=== PATIENT | male | born 1970 | race African-American/Black ===

== ENCOUNTER 2016-11-19 13:13 | Emergency (ER) | payer SELFPAY ==
[~2016-11-19] VITALS: Ht 175.3 cm; Wt 97.7 kg
[2016-11-19 13:17] VITALS: BP 221/133; TEMP 98.4
[2016-11-19 14:47] VITALS: PULSE 58
== END 2016-11-19 14:47 | disposition home or self-care (01) ==
LOC: COL.ER 13:13
DX: M25.571 Pain in right ankle and joints of right foot (principal); I10 Essential (primary) hypertension; W22.8XXA Striking against or struck by other objects, initial encounter; Z53.29 Procedure and treatment not carried out because of patient's decision for other reasons

== ENCOUNTER 2016-12-08 10:19 | Outpatient (RCR) | payer OTHER | END 2017-01-16 13:11 | LOC: WSOH 10:19 | DX: S90.31XD Contusion of right foot, subsequent encounter (principal); M19.071 Primary osteoarthritis, right ankle and foot; W20.8XXD Other cause of strike by thrown, projected or falling object, subsequent encounter; Y99.0 Civilian activity done for income or pay ==

== ENCOUNTER → 2018-06-29 | Outpatient (CLI) | payer SELFPAY ==
[~2018-06-29] VITALS: Ht 175.3 cm; Wt 86.9 kg
[~2018-06-29] MED LIST: ALDACTONE 25MG25 M1 PO; APRESOLINE 10MG10 MG PO; COREG12.5 MG PO; NITRO-DUR0.4 MG/PAT TD; NORVASC2.5 MG PO; PRINIVIL10 MG PO
[2018-06-29 08:36] VITALS: BP 190/124; PULSE 73
[2018-06-29 09:56] VITALS: BP 183/105; PULSE 102
[2018-06-29 09:57] VITALS: BP 173/92; PULSE 92
[2018-06-29 09:58] VITALS: BP 162/90; PULSE 86
== END ==
LOC: COL.CARD 08:04
DX: R07.9 Chest pain, unspecified (principal)
CPT/HCPCS: A9502; J2785

== ENCOUNTER 2018-09-13 09:46 | Inpatient (IN) | payer MEDICAID ==
[~2018-09-13] VITALS: Ht 175.3 cm; Wt 85.5 kg
[2018-09-13] VITALS (269 sets, daily range): BP systolic 135–187; BP diastolic 76–112; PULSE 67–112; TEMP 97.8–98; O2SAT 95–100
[2018-09-13 10:42] LABS: BASO % 0.2 % (0.0-2.0); EOS % 0.1 % (0-4.0); GRAN # 13.5 (1.4-6.5); GRAN % 77.1 % (42.2-75.2); HEMATOCRIT 42.8 % (42.0-52.0); HEMOGLOBIN 14.3 g/dl (13.5-18.0); LYMPH % 17.2 % (20.0-51.0); MEAN CELL VOLUME 77 fl (80.0-100.0); MEAN CORPUSCULAR HEMOGLOBIN 26 pg (27.0-31.0); MEAN CORPUSCULAR HGB CONC 33 g/dl (33.0-37.0); MEAN PLATELET VOLUME 9.7 fl (7.4-10.4); MONO # 0.9 (0.1-0.6); PLATELET COUNT 137 K/mm3 (130-400); RED BLOOD COUNT 5.56 M/mm3 (4.20-5.60); REDCELL DISTRIBUTION WIDTH-CV 14.3 % (11.5-14.5)
[2018-09-13 11:01] LABS: ALBUMIN 4.2 gm/dL (3.5-5.0); BILIRUBIN,TOTAL 0.9 mg/dL (0.0-1.0); C-REACTIVE PROTEIN 1.1 mg/dL (0.0-0.9); CALCIUM 9.4 mg/dL (8.4-10.2); TOTAL PROTEIN 8.6 gm/dL (6.4-8.2)
[2018-09-13 11:12] LABS: CREATININE, serum 5.45 mg/dL (0.66-1.25); POTASSIUM 2.8 mmol/L (3.4-5.0)
[2018-09-13 12:12] LABS: COLLECTION METHOD CLEAN CATCH
[2018-09-13 12:24] LABS: MUCOUS Present /lpf; PH 7 (5-8); SQUAMOUS EPITHELIAL 0-2 /hpf; URINE APPEARANCE Clear; URINE BACTERIA None Seen /hpf; URINE BILIRUBIN Negative (NEGATIVE); URINE BLOOD 2+ (NEGATIVE); URINE COLOR Yellow; URINE GLUCOSE 1+ (NEGATIVE); URINE KETONE Negative (NEGATIVE); URINE LEUKOCYTE ESTERASE Negative (NEGATIVE); URINE NITRATE Negative (NEGATIVE); URINE PROTEIN(semi-quant) 3+ (NEGATIVE); URINE RBC >50 /hpf; URINE UROBILINOGEN Negative (NEGATIVE)
[2018-09-13 12:49] LABS: MAGNESIUM 2.2 mg/dL (1.6-2.3); PHOSPHOROUS 4.7 mg/dL (2.5-4.5)
[2018-09-13 13:11] LABS: TROPONIN-I 0.1 ng/mL (0.000-0.034)
[2018-09-13] MEDS ORDERED: PRINIVIL20 MG PO (15:31)
--- NOTE | 2018-09-13 15:35 | NUR ---
Pt arrived to ICU bed 7 from ER via cart. Pt on Cardene gtt at 10mg/hr. Pt c/o of RUQ pain 11/21. States improved after morphine given in ER. Pt has unsteady gait. Needs x1 assist to ICU bed. HR ST 100s. SBP 180s. Call light in reach.
--- NOTE | 2018-09-13 16:00 | NUR ---
Pt remains on Cardene gtt. Pt resting in bed, easily arousable. Percocet given for headache and RUQ abd pain. Vital signs stable. Call light in reach.
--- NOTE | 2018-09-13 19:00 | NUR ---
Report given to YUE Marshall.
--- NOTE | 2018-09-13 20:00 | NUR ---
PT DROWSY BUT EASILY AWAKENED. PT A&O X3. PT DENIES PAIN AT THIS TIME.
[2018-09-14] VITALS (414 sets, daily range): BP systolic 113–158; BP diastolic 63–94; PULSE 71–93; TEMP 97.4–98.9; O2SAT 97–100
[2018-09-14 06:35] LABS: BASO % 0.2 % (0.0-2.0); GRAN # 15.2 (1.4-6.5); GRAN % 79.3 % (42.2-75.2); HEMATOCRIT 37.4 % (42.0-52.0); LYMPH # 2.4 (1.2-3.4); LYMPH % 12.8 % (20.0-51.0); MEAN CELL VOLUME 79 fl (80.0-100.0); MEAN CORPUSCULAR HEMOGLOBIN 26 pg (27.0-31.0); MEAN CORPUSCULAR HGB CONC 33 g/dl (33.0-37.0); MEAN PLATELET VOLUME 10.2 fl (7.4-10.4); MONO # 1.4 (0.1-0.6); MONO % 7.1 % (1.7-9.3); PLATELET COUNT 159 K/mm3 (130-400); RED BLOOD COUNT 4.75 M/mm3 (4.20-5.60); REDCELL DISTRIBUTION WIDTH-CV 14.6 % (11.5-14.5)
[2018-09-14 06:40] LABS: HEMOGLOBIN 12.3 g/dl (13.5-18.0)
--- NOTE | 2018-09-14 07:00 | NUR ---
Report received from YUE Rodríguez. pT in bed resting, denies pain, falls asleep easily but answers questions during bedside report. will continue to monitor.
[2018-09-14 07:04] LABS: ALBUMIN 3.4 gm/dL (3.5-5.0); CALCIUM 8.8 mg/dL (8.4-10.2); PHOSPHOROUS 5.9 mg/dL (2.5-4.5)
[2018-09-14 07:26] LABS: CREATININE, serum 5.75 mg/dL (0.66-1.25)
--- NOTE | 2018-09-14 08:00 | NUR ---
Drip turned off at this time as BPs are low/stable. Will continue to monitor.
--- NOTE | 2018-09-14 09:30 | NUR ---
Pt sitting up in bed talking to me at 0900, requesting PRN pain pill for pain in RUQ from Dr. Jay palpating, pills given and pt swallowing pills when he became lethargic and unresponsive. Started falling asleep often, called charge nurse and we got him back into supine position. Dr. Sanders called and notified, orders received and implemented, see EMAR. has arrived, updated on situation. VS remain stable, will continue to monitor. IVF bolus to R hand.
[2018-09-14 12:47] LABS: INR 1.1 (0.8-3.0); PROTHROMBIN TIME 12.3 SECONDS (9.7-12.8)
--- NOTE | 2018-09-14 17:15 | NUR ---
Pt has slept off and on all afternoon. at bedside for most of day. BPs remained in 120's to 140's systolically for most of day, held BP as BP below 150 systolically. OR nurse took pt in bed to OR, followed to OR waiting room. Report called to Lorrie, surgical nurse who will be resuming care of pt post operatively. INT to LH and RH. All belongings sent with , surgical to resume care.
--- NOTE | 2018-09-14 17:20 | NUR ---
Received report from YUE Goddard at [facility]. It was reported that patient had just went in for surgery. Awaiting report from ICU following procedure.
--- NOTE | 2018-09-14 19:50 | NUR ---
Received patient at 1950 from procedure. Post-op vitals initiated. Patient is drowsy, arousable to voice and touch. When patient awakens he is confused on what is going on, re-orientated to situation. Abdominal lap sites x 3 with bandaids the lower bandaid has some dried blood noted. Bowel sounds present. Denies any nausea. Post-op IVF infusing via gravity. Family at bedside. Bed is in a low position with bed alarm on and call light in reach.
--- NOTE | 2018-09-14 21:15 | NUR ---
Bed alarm sounding, patient attempting to get out of bed. Patient is more awake, however, still remains confused on being in the hospital and having surgery today. Re-orientated to situation. Patient was able to void 150 ml of yellow clear urine. Patient repositioned in bed independently. Bed remains in a low position with bed alarm on and call light in reach. Family has gone home for the evening.
--- NOTE | 2018-09-14 23:39 | NUR ---
Patient is more awake and alert at this time sitting up in bed watching television. Post-op vitals have been stable. Blood pressure has been in the high 140's-to low 150's. Patient denies any pain. Abdominal lap sites with bandaids with no increase in drainage to the lower site. Patient is tolerating diet with no c/o nausea. IV to INT at this time.
[2018-09-15 00:27] VITALS: BP 151/87; PULSE 89; TEMP 98.1
[2018-09-15 04:20] VITALS: BP 126/73; BP 146/73; PULSE 86; TEMP 98
--- NOTE | 2018-09-15 07:14 | NUR ---
Patient has rested intermittently through the night, more alert and orientated this morning. Currently sitting up in bed watching television. Abdominal lap sites x 3 with bandaids remain CDI after replacing lower bandaid. Denies any concerns or needs, call light within reach.
--- NOTE | 2018-09-15 07:46 | NUR ---
REPORT FROM MARTHA TURNER. PT NPO FOR ERCP LATER THIS PM. PT NOTIFIED OF NEW ORDERS.
[2018-09-15 08:28] VITALS: BP 144/84; PULSE 86; TEMP 97.8
--- NOTE | 2018-09-15 08:46 | NUR ---
BP MEDS HELD PER ORDERS, <150.
--- NOTE | 2018-09-15 10:17 | NUR ---
PT LAYING IN BED WATCHING TV. PT HAS DIFFICULTY SEEING BUTTONS ON REMOTE. ASSISTED WITH TV ADJUSTMENT.
[2018-09-15 11:33] VITALS: BP 157/90; PULSE 94; TEMP 97.6
--- NOTE | 2018-09-15 12:07 | NUR ---
SPOKE WITH DR. GUILLAUME RADIOLOGY RE DIALYSIS CATHETER PLACEMENT. NO NEW ORDERS AT THIS TIME.
[2018-09-15 14:08] LABS: BASO % 0.1 % (0.0-2.0); GRAN # 16.4 (1.4-6.5); GRAN % 81.3 % (42.2-75.2); LYMPH # 2.2 (1.2-3.4); LYMPH % 10.9 % (20.0-51.0); MEAN CELL VOLUME 79 fl (80.0-100.0); MEAN CORPUSCULAR HGB CONC 32 g/dl (33.0-37.0); MEAN PLATELET VOLUME 10.2 fl (7.4-10.4); MONO # 1.4 (0.1-0.6); MONO % 6.9 % (1.7-9.3); PLATELET COUNT 165 K/mm3 (130-400); RED BLOOD COUNT 3.89 M/mm3 (4.20-5.60); REDCELL DISTRIBUTION WIDTH-CV 15.4 % (11.5-14.5)
--- NOTE | 2018-09-15 14:13 | NUR ---
PATIENT TO ERCP AT THIS TIME WITH
[2018-09-15 14:19] LABS: CALCIUM 8.6 mg/dL (8.4-10.2); PHOSPHOROUS 5.4 mg/dL (2.5-4.5); POTASSIUM 3.1 mmol/L (3.4-5.0)
[2018-09-15 14:24] LABS: CREATININE, serum 7.39 mg/dL (0.66-1.25)
[2018-09-15 14:26] LABS: HEMATOCRIT 30.8 % (42.0-52.0); HEMOGLOBIN 9.9 g/dl (13.5-18.0); MEAN CORPUSCULAR HEMOGLOBIN 25 pg (27.0-31.0)
--- NOTE | 2018-09-15 14:58 | NUR ---
SW attempted to meet with patient to discuss discharge however he was out of room for procedure. Will try again.
--- NOTE | 2018-09-15 19:15 | NUR ---
REPORT TO MARTHA TURNER.
[2018-09-15 19:49] VITALS: BP 140/55; PULSE 89; TEMP 98.6
--- NOTE | 2018-09-15 21:00 | NUR ---
Assessment completed. Patient is A&O x 4, is impulsive at times and gets up without using the call light. VSS. Denies any pain. Abdominal lap sites x 3 with bandaids are CDI. Bowel sounds present. Reports passing gas. Tolerating diet with no c/o nausea. Voiding with no difficulities. IVF infusing via left hand per orders. INT to right hand. Up with standby assist as patient can be unsteady at times with a shuffled gait. Denies any concerns or needs at this time. Bed is in a low position with bed alarm on for impulsivness and call light within reach.
[2018-09-16 00:31] VITALS: BP 155/78; PULSE 76; TEMP 98
[2018-09-16 04:47] VITALS: BP 147/85; PULSE 73; TEMP 98.1
--- NOTE | 2018-09-16 06:09 | NUR ---
Patient has for short periods of time through the night. VSS. Reports minimal discomfort to abdomen, denies needing any pain medication. Abdominal lap sites x 3 with bandaids remain CDI. IVF have finished infusing over the 15 hours per orders. Up with standy assist, gait can be unsteady at times. Bed remains in a low position with bed alarm on for impulsivness and call light in reach.
--- NOTE | 2018-09-16 07:23 | NUR ---
Report from Genesis TURNER.
[2018-09-16 07:36] VITALS: BP 146/81; PULSE 82; TEMP 98.5
[2018-09-16 08:06] LABS: BASO % 0.1 % (0.0-2.0); GRAN # 12.8 (1.4-6.5); GRAN % 73.5 % (42.2-75.2); HEMATOCRIT 29.4 % (42.0-52.0); HEMOGLOBIN 9.4 g/dl (13.5-18.0); LYMPH # 3.3 (1.2-3.4); MEAN CELL VOLUME 80 fl (80.0-100.0); MEAN CORPUSCULAR HEMOGLOBIN 25 pg (27.0-31.0); MEAN CORPUSCULAR HGB CONC 32 g/dl (33.0-37.0); MEAN PLATELET VOLUME 10.7 fl (7.4-10.4); MONO # 1.2 (0.1-0.6); MONO % 6.8 % (1.7-9.3); PLATELET COUNT 200 K/mm3 (130-400); RED BLOOD COUNT 3.69 M/mm3 (4.20-5.60); REDCELL DISTRIBUTION WIDTH-CV 15.5 % (11.5-14.5)
[2018-09-16 08:15] LABS: CALCIUM 8.5 mg/dL (8.4-10.2); PHOSPHOROUS 4.2 mg/dL (2.5-4.5)
[2018-09-16 08:17] LABS: CREATININE, serum 7.74 mg/dL (0.66-1.25)
[2018-09-16 10:10] LABS: IRON,SERUM 34 ug/dL (35-150)
--- NOTE | 2018-09-16 10:19 | NUR ---
continue to hold all BP medications for systolic less than 150. am meds held per Bedros.
[2018-09-16 10:20] LABS: TOTAL IRON BINDING CAPACITY 191 ug/dL (261-462)
[2018-09-16 10:46] LABS: FERRITIN 267 ng/mL (18-464)
--- NOTE | 2018-09-16 11:09 | NUR ---
PT ATE BREAKFAST THIS AM. DR. HORTON IN TO SEE PATIENT THIS AM . SEE COMPUTER FOR ORDERS.
--- NOTE | 2018-09-16 11:27 | NUR ---
SW met with patient to discuss discharge planning. Patient lives in [place] with his Valorie. Patients PCP is Dr Turcios and he obtains his medications from [facility]. Álvaro from [employer] reports that he has met with patient and have applied for what he qualifies for including disability. Patient plans on DC Home however fabiola will continue to follow.
[2018-09-16 12:04] VITALS: BP 138/96; PULSE 68; TEMP 98.6
[2018-09-16 20:40] VITALS: BP 169/78; BP 171/89; PULSE 71; TEMP 97.8
--- NOTE | 2018-09-16 22:07 | NUR ---
Assessment completed. Patient is A&O x 4, sitting up in bed watching television. Blood pressure is above 150, medications given per orders. Denies any pain. Abdominal lap sites x 3 with bandaids are CDI. Bowel sounds present. Reports passing gas. Voiding with no difficulities, urine is hilda clear. INT to left and right hand. Up with standby assist, gait is steadier today than it has been the last couple of nights. Deneis any concerns or needs. Bed is in a low position with call light in reach.
[2018-09-16 23:47] VITALS: BP 191/103; PULSE 80; TEMP 98.2
[2018-09-17] VITALS (14 sets, daily range): BP systolic 131–192; BP diastolic 69–110; PULSE 71–94; TEMP 98.1–98.5
--- NOTE | 2018-09-17 00:01 | NUR ---
Patients blood pressure noted to be elevated at 191/103, prn Hydralazine given per orders of SBP >170. Will recheck blood pressure.
--- NOTE | 2018-09-17 01:35 | NUR ---
Patient's blood pressure is now 169/73 after getting up and going to the restroom. Patient does c/o of some abdominal tenderness, prn Percocet given. Denies any other concerns or needs at this time.
--- NOTE | 2018-09-17 05:35 | NUR ---
Patient has rested intermittently through the night. PRN Hydralazine given once through the shift for elevated blood pressure. Patient did receive 1 tablet of Percocet for c/o abdominal tenderness. Abdominal lap sites x 3 with bandaids remain CDI. Denies any concerns or needs this morning.
[2018-09-17 06:16] LABS: BASO % 0.2 % (0.0-2.0); EOS # 0.1 (0.0-0.7); EOS % 0.5 % (0-4.0); GRAN # 7.8 (1.4-6.5); GRAN % 60.3 % (42.2-75.2); LYMPH # 3.9 (1.2-3.4); LYMPH % 30.4 % (20.0-51.0); MEAN CELL VOLUME 81 fl (80.0-100.0); MEAN CORPUSCULAR HGB CONC 32 g/dl (33.0-37.0); MEAN PLATELET VOLUME 9.5 fl (7.4-10.4); MONO # 1.1 (0.1-0.6); MONO % 8.1 % (1.7-9.3); PLATELET COUNT 213 K/mm3 (130-400); RED BLOOD COUNT 3.56 M/mm3 (4.20-5.60); REDCELL DISTRIBUTION WIDTH-CV 15.6 % (11.5-14.5)
[2018-09-17 06:23] LABS: ALBUMIN 2.8 gm/dL (3.5-5.0); CALCIUM 8.3 mg/dL (8.4-10.2); PHOSPHOROUS 3.7 mg/dL (2.5-4.5); POTASSIUM 3.2 mmol/L (3.4-5.0)
[2018-09-17 06:39] LABS: CREATININE, serum 7.81 mg/dL (0.66-1.25)
[2018-09-17 06:43] LABS: HEMATOCRIT 28.9 % (42.0-52.0); HEMOGLOBIN 9.1 g/dl (13.5-18.0); MEAN CORPUSCULAR HEMOGLOBIN 26 pg (27.0-31.0)
--- NOTE | 2018-09-17 07:53 | NUR ---
Patient sitting up at edge of bed. alert & oriented. Patient Bp elevated this am. All Am BP medications given with water this am. He denies being able to feel his elevated BP. Checked with medical lab specialist they plan of dialysis cath placement later this afternoon. Made patient aware of this. He is really wanting to get out of the hospital. His family is at bedside. He reports pain, but states "he likes pain". Denies wanting medication at this time. Patient skin is very dry. Lap site from [facility] jayne banaids intact. Int x2. Will continue to [facility].
--- NOTE | 2018-09-17 08:20 | NUR ---
Spoke with Plans for dialysis cathertor placement at 0900. COnsent obtained. Patient made aware of plan of care. He is feeling a little nervous. He supportive family chelsy nino.
--- NOTE | 2018-09-17 09:11 | NUR ---
Patient to minilab operator for diaylsis procedure. Will await his return
--- NOTE | 2018-09-17 09:21 | NUR ---
ALL MEDS GIVEN WITH VERBAL ORDER FROM MD. SEE MERGE FOR ADMIN TIMES.
--- NOTE | 2018-09-17 10:32 | NUR ---
Patient had returned from cath la, he is sleepy. Vss on room air. Right neck dresing intact, tunneled cath in place. Will monitor.
--- NOTE | 2018-09-17 12:50 | NUR ---
Patient to ICU room 17 for his first dialysis, Spoke with [facility] nurse who will care for patient. His vitals have remained stable on room air. Patient was up to the bathroom for the first time,stand by assist. He did report feeling short of breath, but vitals remained stable, once patient settled back into bed he settled down & was stable, denied feeling short of breath. His Shavonne given update of plan of care.
--- NOTE | 2018-09-17 15:38 | NUR ---
Patient has completed dialysis. He denies needing pain medication at this time, but report dialysis was hard on his neck. Patient Iv antibioitcs as ordered to Rob. K+ replaced per ordered. Patient Vss. Will monitor.
--- NOTE | 2018-09-17 16:49 | NUR ---
Patient continues to rest in bed. Bp more elevated. Coreg given per orders. IV antibioitcs as ordered. He denies the need for pain medication. He is wanting to nap until dinner. Will monitor.
--- NOTE | 2018-09-17 20:00 | NUR ---
Patient in bed resting; alert and oriented x 3. Shift assessment complete. Patient states pain to right shoulder, medication given per orders. Also educated patient on increasing ambulation. Lap sites x3 CDI with bandaids. Denies further needs at this time.
--- NOTE | 2018-09-17 21:30 | NUR ---
Patient bp 157/85, refuses to take evening medications. Patient educated on need and importance of taking medcations as prescribed. Continues to refuse medication.
[2018-09-18] VITALS (18 sets, daily range): BP systolic 148–185; BP diastolic 77–110; PULSE 70–84; TEMP 97.9–98.4
--- NOTE | 2018-09-18 05:36 | NUR ---
Patient has rested intermittently through the night. Minimal needs. Independent in room. Blood pressures have remained high, medications given as prescribed. Denies pain at this time. Denies further needs at this time.
--- NOTE | 2018-09-18 07:00 | NUR ---
Report received from YUE Chi. PT in bed resting, awake and alert, requestig grape juice and states he does not like the water here. Grape juice provided, will continue to monitor.
[2018-09-18 09:47] LABS: BASO % 0.2 % (0.0-2.0); EOS # 0.1 (0.0-0.7); GRAN # 6.1 (1.4-6.5); LYMPH # 3.5 (1.2-3.4); LYMPH % 33.5 % (20.0-51.0); MEAN CELL VOLUME 82 fl (80.0-100.0); MEAN CORPUSCULAR HGB CONC 32 g/dl (33.0-37.0); MEAN PLATELET VOLUME 9.2 fl (7.4-10.4); MONO # 0.7 (0.1-0.6); MONO % 6.9 % (1.7-9.3); PLATELET COUNT 188 K/mm3 (130-400); RED BLOOD COUNT 2.87 M/mm3 (4.20-5.60); REDCELL DISTRIBUTION WIDTH-CV 15.9 % (11.5-14.5)
[2018-09-18 09:51] LABS: HEMATOCRIT 23.5 % (42.0-52.0); HEMOGLOBIN 7.4 g/dl (13.5-18.0); MEAN CORPUSCULAR HEMOGLOBIN 26 pg (27.0-31.0)
[2018-09-18 09:59] LABS: ALBUMIN 2.1 gm/dL (3.5-5.0); PHOSPHOROUS 1.8 mg/dL (2.5-4.5)
--- NOTE | 2018-09-18 10:12 | NUR ---
Pt down for dialysis at 0915. Pt was awake and alert this morning but felt that someone had slipped potassium into his juice and was having difficulty following our conversation about the plan of care. Wanted me to call several times to bring him juice, discussed that we have those juices here in the hospital but he would prefer if they were brought from outside. Pt down to dialysis, HD catheter to RIJ. INT to RH d/c'd as it was very outdated. Called Dialysis nurse and passed along questions regarding saving an upper extremity for a future A/V fistula. L will be restricted moving forward. Also called to pass on to Bedros about drop in Hgb. Will await return.
[2018-09-18 10:25] LABS: CALCIUM 5.8 mg/dL (8.4-10.2); CREATININE, serum 3.95 mg/dL (0.66-1.25); POTASSIUM 2.6 mmol/L (3.4-5.0)
--- NOTE | 2018-09-18 10:27 | NUR ---
Called rotor casting machine setup operator who will pass on critical lab values from today's labs to Dr. Sanders who should be arriving shortly
--- NOTE | 2018-09-18 14:35 | NUR ---
Started 1st Unit of PRBCs at this time with pt. Pt resting in bed, discussed s/sx of a transfusion reaction, going at 60 ml/hr, will remain with pt for first 15 minutes.
--- NOTE | 2018-09-18 14:50 | NUR ---
Remained with pt for first 15 minutes. PT doing well, no s/sx of a transfusion reaction. Will continue to monitor.
--- NOTE | 2018-09-18 16:30 | NUR ---
Report given to YUE Gore who will resume care.
--- NOTE | 2018-09-18 20:00 | NUR ---
Patient to get second unit of blood. After confirmation with second RN, transfusion of unit #[id number] started to right AC site without redness or swelling. DC'd IV site to left hand due to leaking. Patient is alert and oriented x3. Lung sounds clear, abdomen distended with bowel sounds present. Lap sites x3 open to air, dry and closed. No peripheral edema noted. HD catheter to right chest intact. No concerns at this time.
--- NOTE | 2018-09-18 22:00 | NUR ---
TRANSFUSION COMPLETED. PATIENT TOLERATED WITHOUT ADVERSE REACTION.
[2018-09-19] VITALS (9 sets, daily range): BP systolic 144–188; BP diastolic 76–108; PULSE 63–74; TEMP 97.5–98.3
--- NOTE | 2018-09-19 04:20 | NUR ---
BP check 175/94, given Apresoline 25mg po now. IV Flagyl infusing to right AC SL site without redness or swelling. Reports no dizziness or lightheaded feelings when up to BR.
--- NOTE | 2018-09-19 05:30 | NUR ---
BP recheck, 153/81. Flagyl complete and SL flushed.
[2018-09-19 08:07] LABS: BASO # 0.1 (0.0-0.2); BASO % 0.4 % (0.0-2.0); EOS # 0.1 (0.0-0.7); EOS % 1.2 % (0-4.0); GRAN # 6.9 (1.4-6.5); LYMPH # 3.7 (1.2-3.4); LYMPH % 31.1 % (20.0-51.0); MEAN CELL VOLUME 82 fl (80.0-100.0); MEAN CORPUSCULAR HGB CONC 32 g/dl (33.0-37.0); MEAN PLATELET VOLUME 9.4 fl (7.4-10.4); MONO % 8.2 % (1.7-9.3); PLATELET COUNT 224 K/mm3 (130-400); RED BLOOD COUNT 4.14 M/mm3 (4.20-5.60); REDCELL DISTRIBUTION WIDTH-CV 15.7 % (11.5-14.5)
[2018-09-19 08:16] LABS: ALBUMIN 2.7 gm/dL (3.5-5.0); CALCIUM 8.3 mg/dL (8.4-10.2); HEMOGLOBIN 10.9 g/dl (13.5-18.0); MEAN CORPUSCULAR HEMOGLOBIN 26 pg (27.0-31.0); PHOSPHOROUS 2.9 mg/dL (2.5-4.5); POTASSIUM 3.8 mmol/L (3.4-5.0)
--- NOTE | 2018-09-19 08:21 | NUR ---
Pt is awake and A/Ox4, sitting up in bed. He denies pain or discomfort at this time. Lap. sites to abdomen are open to air and free of complications. Saline lock to right AC is free of complications. BP elevated, given danuta. meds + PRN catapres. Pt denies any other needs, will monitor.
[2018-09-19 08:25] LABS: CREATININE, serum 4.36 mg/dL (0.66-1.25)
--- NOTE | 2018-09-19 11:32 | NUR ---
Pt continues to sit in recliner, at bedside. Dr. Sanders updated on 's arrival per his request. Pt denies any other needs.
--- NOTE | 2018-09-19 20:20 | NUR ---
Patient in bed, reports nausea and has emesis basin in bed with him. Reports voiding without problem, no BM reported. Has dialysis catheter to right chest. SL to right AC. Abdomen with 3 dry lap sites. Medicated with IV Zofran at this time.
--- NOTE | 2018-09-19 23:13 | NUR ---
Patient reports pain to knees. Medicated with Percocet at this time. Patient received first dose of Zoloft 75mg this HS.
[2018-09-20 00:30] VITALS: BP 180/86; PULSE 68; TEMP 98.2
--- NOTE | 2018-09-20 04:11 | NUR ---
Patient awakens easily, premedicated with IV Zofran prior to infusing IV Flagyl.
[2018-09-20 04:16] VITALS: BP 165/95; PULSE 65; TEMP 97.9
--- NOTE | 2018-09-20 06:11 | NUR ---
Patient reports nausea has resolved, coffee provided per his request.
--- NOTE | 2018-09-20 08:30 | NUR ---
Pt awake and alert. Pt unhappy none of food within prescribed diet is appetizing. Pt off to dialysis, transported via wheel chair
[2018-09-20 08:32] LABS: BASO % 0.2 % (0.0-2.0); EOS # 0.2 (0.0-0.7); EOS % 1.4 % (0-4.0); GRAN # 8.4 (1.4-6.5); GRAN % 60.5 % (42.2-75.2); HEMOGLOBIN 11.3 g/dl (13.5-18.0); LYMPH # 4.1 (1.2-3.4); LYMPH % 29.6 % (20.0-51.0); MEAN CELL VOLUME 83 fl (80.0-100.0); MEAN CORPUSCULAR HEMOGLOBIN 26 pg (27.0-31.0); MEAN CORPUSCULAR HGB CONC 32 g/dl (33.0-37.0); MEAN PLATELET VOLUME 9.7 fl (7.4-10.4); MONO % 7.4 % (1.7-9.3); PLATELET COUNT 258 K/mm3 (130-400); RED BLOOD COUNT 4.32 M/mm3 (4.20-5.60); REDCELL DISTRIBUTION WIDTH-CV 15.9 % (11.5-14.5)
[2018-09-20 08:34] LABS: HEMATOCRIT 35.8 % (42.0-52.0)
[2018-09-20 08:44] LABS: CALCIUM 8.4 mg/dL (8.4-10.2)
[2018-09-20 08:45] LABS: CREATININE, serum 4.56 mg/dL (0.66-1.25)
--- NOTE | 2018-09-20 11:07 | NUR ---
MOHINI called rosana in finance to see if she could meet with patient today about questions he has about disability. She put him on her list.
[2018-09-20 12:31] VITALS: BP 166/88; PULSE 68; TEMP 98
[2018-09-20 16:13] VITALS: BP 154/112; PULSE 70; TEMP 98.4
[2018-09-20 19:22] VITALS: BP 168/80; PULSE 73; TEMP 98.2
--- NOTE | 2018-09-20 22:00 | NUR ---
Patient asking for pain med for bilateral knee discomfort. Takes other HS meds at this time as well. Wearing knee supports from home. Has SL to Right AC, no redness or swelling noted. Vascath to right chest intact. Denies dizziness when ambulating. Voiding without problem and reports BM today.
[2018-09-21 03:27] VITALS: BP 199/99; PULSE 73; TEMP 98.3
--- NOTE | 2018-09-21 03:50 | NUR ---
BP elevated 199/99. Medicated with Hydralazine 25mg po now.
--- NOTE | 2018-09-21 05:00 | NUR ---
BP down to 180/88 at this time.
[2018-09-21 05:13] VITALS: BP 180/88
[2018-09-21 06:29] LABS: BASO % 0.3 % (0.0-2.0); EOS # 0.2 (0.0-0.7); EOS % 1.2 % (0-4.0); GRAN # 9.8 (1.4-6.5); HEMOGLOBIN 10.3 g/dl (13.5-18.0); LYMPH # 3.7 (1.2-3.4); LYMPH % 24.7 % (20.0-51.0); MEAN CELL VOLUME 86 fl (80.0-100.0); MEAN CORPUSCULAR HEMOGLOBIN 26 pg (27.0-31.0); MEAN CORPUSCULAR HGB CONC 31 g/dl (33.0-37.0); MONO # 1.2 (0.1-0.6); MONO % 8.1 % (1.7-9.3); PLATELET COUNT 270 K/mm3 (130-400); RED BLOOD COUNT 3.95 M/mm3 (4.20-5.60); REDCELL DISTRIBUTION WIDTH-CV 16.7 % (11.5-14.5)
[2018-09-21 06:35] LABS: HEMATOCRIT 33.8 % (42.0-52.0)
[2018-09-21 06:45] LABS: ALBUMIN 2.9 gm/dL (3.5-5.0); CALCIUM 8.4 mg/dL (8.4-10.2); CREATININE, serum 3.54 mg/dL (0.66-1.25); PHOSPHOROUS 1.9 mg/dL (2.5-4.5); POTASSIUM 4.2 mmol/L (3.4-5.0)
--- NOTE | 2018-09-21 08:00 | NUR ---
PATIENT IS DROWSY AND RESTING IN BED THIS AM. PATIENT IS A&O. VSS. BOWEL SOUNDS ACTIVE ALL FOUR QUADRANTS. PATIENT TOLERATING FOOD & LIQUIDS WITHOUT ANY COMPLAINTS OF N/V. ABDOMINAL LAP SITES X3 GLASS SANDER WITH EDGES WELL APPROXIMATED. RIGHT IJ PUNCTURE DRESSED WITH BANDAID AND IS CD&I. POSITIVE PEDAL PULSES EQUAL BILATERALLY. RIGHT AC TO INT. DIALYSIS CATHETER TO RIGHT CHEST DRESSED WITH GAUZE AND IS CD&I. CALL LIGHT WITHIN REACH. BREAKFAST TRAY ORDERED. NO OTHER NEEDS AT THIS TIME.
[2018-09-21 08:26] VITALS: BP 207/100; PULSE 73; TEMP 98.4
[2018-09-21 09:55] VITALS: BP 158/97
--- NOTE | 2018-09-21 10:14 | NUR ---
First visit from the roller bearing inspector. No needs right now.
[2018-09-21] MEDS ORDERED: ZOLOFT 25MG25 MG PO (10:43)
[2018-09-21] MEDS ORDERED: COREG 25MG25 MG/TAB PO (10:43)
[2018-09-21] MEDS ORDERED: APRESOLINE 25MG25 MG PO (10:45)
[2018-09-21] MEDS ORDERED: ZOFRAN 4MG T4 MG/TAB PO (10:45)
[2018-09-21] MEDS ORDERED: PERCOCET 325 MG1 TA2 PO (10:46)
--- NOTE | 2018-09-21 11:12 | NUR ---
Patient is discharging home today with family support.
--- NOTE | 2018-09-21 11:50 | NUR ---
PATIENT DISCHARGE INSTRUCTIONS REVIEWED. ALL QUESTIONS ANSWERED. PATIENT PERSONAL BELONGINGS GATHERED. PATIENT TAKEN TO PERSONAL VEHICLE VIA WHEELCHAIR BY SURGICAL STAFF. PATIENT DISCHARGED.
[2018-09-21 12:07] VITALS: BP 163/108; PULSE 82; TEMP 97.6
--- NOTE | 2018-09-21 12:28 | NUR ---
PATIENT'S RIGHT AC INT DC'D PER PENDING DISCHARGE. PATIENT TOLERATED WELL.
--- NOTE | 2018-09-21 14:00 | NUR ---
PATIENT REFUSED NARCOTIC PRESCRIPTION. PRESCRIPTION SHREDDED. DR. SANCHEZ NOTIFIED.
== END 2018-09-21 11:50 | disposition home or self-care (01) | DRG 417 ==
LOC: COL.ER 09:46 → SURG 11:59 → ICU 11:59 → SURG 09-14 19:56
PROVIDERS: Emergency Medicine; Physician Assistant; Surgery; ADMIT Internal Medicine Nephrology
PROC: BF131ZZ Fluoroscopy of Gallbladder and Bile Ducts using Low Osmolar Contrast (ICD-10-PCS; 2018-09-14)
PROC: 0FT44ZZ Resection of Gallbladder, Percutaneous Endoscopic Approach (ICD-10-PCS; principal; 2018-09-14 16:00)
PROC: 0F798ZZ Dilation of Common Bile Duct, Via Natural or Artificial Opening Endoscopic (ICD-10-PCS; 2018-09-15)
PROC: 0JH60XZ Insertion of Tunneled Vascular Access Device into Chest Subcutaneous Tissue and Fascia, Open Approach (ICD-10-PCS; 2018-09-17)
PROC: 02H633Z Insertion of Infusion Device into Right Atrium, Percutaneous Approach (ICD-10-PCS; 2018-09-17)
PROC: 5A1D70Z Performance of Urinary Filtration, Intermittent, Less than 6 Hours Per Day (ICD-10-PCS; 2018-09-17)
PROC: 5A1D70Z Performance of Urinary Filtration, Intermittent, Less than 6 Hours Per Day (ICD-10-PCS; 2018-09-18)
PROC: 5A1D70Z Performance of Urinary Filtration, Intermittent, Less than 6 Hours Per Day (ICD-10-PCS; 2018-09-20)
DX: K80.63 Calculus of gallbladder and bile duct with acute cholecystitis with obstruction (principal); N18.6 End stage renal disease; I12.0 Hypertensive chronic kidney disease with stage 5 chronic kidney disease or end stage renal disease; I16.1 Hypertensive emergency; N17.9 Acute kidney failure, unspecified; D62 Acute posthemorrhagic anemia; K82.A1 Gangrene of gallbladder in cholecystitis; D86.0 Sarcoidosis of lung; D63.1 Anemia in chronic kidney disease; F17.210 Nicotine dependence, cigarettes, uncomplicated; E87.6 Hypokalemia; F32.9 Major depressive disorder, single episode, unspecified
CPT/HCPCS: C1769; G0365; J0690; J0882; J1100; J1170; J1644; J1956; J2250; J2270; J2370; J2405; J2550; J2704; J2916; J3010; J3480; J7030; J7040; J7050; P9016; Q9967

== ENCOUNTER 2018-09-23 01:27 | Inpatient (IN) | payer MEDICAID ==
[~2018-09-23] VITALS: Ht 175.3 cm; Wt 75.6 kg
[2018-09-23] VITALS (579 sets, daily range): BP systolic 136–200; BP diastolic 87–118; PULSE 76–90; TEMP 97.3–98.8; O2SAT 93–100
[~2018-09-23 01:27] MED LIST changes: +APRESOLINE 25MG25 MG PO; +COREG 25MG25 MG/TAB PO; +PERCOCET 325 MG1 TA2 PO; +PRINIVIL20 MG PO; +ZOFRAN 4MG T4 MG/TAB PO; +ZOLOFT 25MG25 MG PO
[2018-09-23 02:08] LABS: MEAN CELL VOLUME 87 fl (80.0-100.0); MEAN CORPUSCULAR HGB CONC 32 g/dl (33.0-37.0); MEAN PLATELET VOLUME 10.2 fl (7.4-10.4); PLATELET COUNT 286 K/mm3 (130-400); RED BLOOD COUNT 2.57 M/mm3 (4.20-5.60); REDCELL DISTRIBUTION WIDTH-CV 17.4 % (11.5-14.5)
[2018-09-23 02:14] LABS: HEMATOCRIT 22.3 % (42.0-52.0); MEAN CORPUSCULAR HEMOGLOBIN 28 pg (27.0-31.0)
[2018-09-23 02:15] LABS: HEMOGLOBIN 7.1 g/dl (13.5-18.0)
[2018-09-23 02:16] LABS: ALBUMIN 2.7 gm/dL (3.5-5.0); BILIRUBIN,TOTAL 0.3 mg/dL (0.0-1.0); POTASSIUM 4.3 mmol/L (3.4-5.0); TOTAL PROTEIN 5.7 gm/dL (6.4-8.2)
[2018-09-23 02:17] LABS: CREATININE, serum 3.97 mg/dL (0.66-1.25)
[2018-09-23 02:22] LABS: PROTHROMBIN TIME 11.9 SECONDS (9.7-12.8)
[2018-09-23 02:25] LABS: PARTIAL THROMBOPLASTIN TIME 28.9 SECONDS (26.0-37.0)
[2018-09-23 02:31] LABS: HYPOCHROMIA 2+; TROPONIN-I 0.064 ng/mL (0.000-0.034)
[2018-09-23 02:32] LABS: ANISOCYTOSIS 2+; HELMET CELLS 1+; POLYCHROMASIA 1+; TARGET CELLS 1+
[2018-09-23 02:33] LABS: PLATELET ESTIMATE NORMAL (NORMAL)
[2018-09-23 02:34] LABS: NEUTROPHILS 67 % (42.0-75.2); POIKILOCYTOSIS 1+
[2018-09-23 02:36] LABS: LYMPHOCYTE 30 % (20.0-51.0)
--- NOTE | 2018-09-23 04:01 | NUR ---
Received telephone report from YUE Patterson.
--- NOTE | 2018-09-23 04:04 | NUR ---
Patient arrived to the unit via stretcher. Able to self transfer from stretcher to ICU bed with stand by assist only.
--- NOTE | 2018-09-23 04:59 | NUR ---
Called Dr. Lockwood to update on patient status. Stated he will put in orders at this time.
--- NOTE | 2018-09-23 05:31 | NUR ---
Patient reported knee pain upon arrival to the unit, however denied wanting any medication. Patient now requesting medication for knee pain. Dr. Lockwood called but did not answer.
--- NOTE | 2018-09-23 06:40 | NUR ---
Second unit of blood transfusing. No concerns or issues at this time.
--- NOTE | 2018-09-23 07:44 | NUR ---
Report given to YUE Agosto. Patient care transfered.
--- NOTE | 2018-09-23 08:00 | NUR ---
Pt alert and oriented. Ambulated to commode without difficulty. CathLab team present prepping pt for consented procedure.
[2018-09-23 08:27] LABS: PATHOLOGY DIFF REVIEW OK
[2018-09-23 12:37] LABS: HEMOGLOBIN 9.2 g/dl (13.5-18.0)
--- NOTE | 2018-09-23 13:23 | NUR ---
layout worker met with patient and spouse to discuss discharge planning. Patient lives with spouse and states he is having difficulty with ambulation, especially out in the community. Spouse states patient was approved for medicaid as of 06/14/18-11/2018, with medicare starting 11/2018. Worker advised that medicaid pays for a walker or a wheelchair. Patient prefers a wheelchair and spouse agrees. Nurse will request a therapy evaluation. Case management will follow to secure durable medical equipment, that insurance will cover. Patient plans to discharge to home. Worker collaborated with Johanna, financial counselor, who confirms insurance information. Johanna updated spouse's phone number in the medical record.
--- NOTE | 2018-09-23 13:25 | NUR ---
Endoscopy being performed at bedside with all personnel
--- NOTE | 2018-09-23 13:59 | NUR ---
Bedside report recieved from YUE Rodríguez after procedure. Pt awake and alert, brought back in from waiting room. Pt having no pain (including throat). VSS. Fabián MD notified that bleed was caused from healing sphincterotomy from ERCP pt had last week. No active bleed or interventions or biopsy taken. Call light within reach for pt, diet advanced and encouraged pt to order meal.
--- NOTE | 2018-09-23 14:04 | NUR ---
Jax PRUETT at bedside updating family and pt. All questions answered
--- NOTE | 2018-09-23 19:00 | NUR ---
Received report from YUE Agosto. Patient care received.
--- NOTE | 2018-09-23 22:48 | NUR ---
Patient assisted by staff via wheelchair up to the medical floor. Patient alert and oriented at time of departure. BP elevated; Dr. Lockwood made aware and stated would continue home BP meds. To be given on arrival to medical floor.
[2018-09-24 04:29] VITALS: BP 128/75; PULSE 89; TEMP 97.7
--- NOTE | 2018-09-24 06:47 | NUR ---
PT CAME UP FROM ICU AT 2330. NO ISSUE OR CONERNS VOICED. GAVE PO B/P MEDS THAT WHERE RESTARTED FROM HOME MEDS. RESTED THROUGHOUT NOC
[2018-09-24 07:32] VITALS: BP 169/89; PULSE 72; TEMP 97.5
--- NOTE | 2018-09-24 08:32 | NUR ---
PT off floor for dialysis at 0825; transported by this nurse via wheelchair. CDA
[2018-09-24 08:42] LABS: BASO % 0.2 % (0.0-2.0); EOS # 0.2 (0.0-0.7); EOS % 1.1 % (0-4.0); GRAN % 65.7 % (42.2-75.2); LYMPH # 3.6 (1.2-3.4); LYMPH % 26.3 % (20.0-51.0); MEAN CELL VOLUME 86 fl (80.0-100.0); MEAN CORPUSCULAR HGB CONC 32 g/dl (33.0-37.0); MEAN PLATELET VOLUME 9.2 fl (7.4-10.4); MONO # 0.8 (0.1-0.6); MONO % 6.1 % (1.7-9.3); PLATELET COUNT 248 K/mm3 (130-400); RED BLOOD COUNT 3.38 M/mm3 (4.20-5.60); REDCELL DISTRIBUTION WIDTH-CV 17.3 % (11.5-14.5)
[2018-09-24 08:44] LABS: HEMATOCRIT 29.2 % (42.0-52.0); HEMOGLOBIN 9.4 g/dl (13.5-18.0); MEAN CORPUSCULAR HEMOGLOBIN 28 pg (27.0-31.0)
[2018-09-24 08:54] LABS: CALCIUM 8.6 mg/dL (8.4-10.2); POTASSIUM 4.5 mmol/L (3.4-5.0)
[2018-09-24 09:11] LABS: CREATININE, serum 4.52 mg/dL (0.66-1.25)
--- NOTE | 2018-09-24 12:05 | NUR ---
PT returned to the floor from dialysis. PT denied needs or concerns at time of return; Call light placed in reach; Will continue to monitor. CDA
[2018-09-24 13:00] VITALS: BP 135/79; PULSE 74; TEMP 97.8
[2018-09-24 15:12] VITALS: BP 135/88; PULSE 76; TEMP 98
--- NOTE | 2018-09-24 16:04 | NUR ---
MOHINI met with the patient to discuss DME companies for wheelchair or a walker. The patient preferred [facility]. Patient choice form signed by the patient. Due to the patient being able to use a walker in the home, the patient's insurance will not cover for a wheelchair. MOHINI informed the patient's , via phone. The patient's reports that she is agreeable to pursue with the walker. MOHINI has contacted and faxed the patient's information to Ayah at [facility]. MOHINI will need to obtain the signed script from Dr. Lockwood tomorrow, 09/25, and send to [facility].
--- NOTE | 2018-09-24 18:12 | NUR ---
PT doing well post dialysis. PT denies pain or discomfort at time of reassessment. PT reports resting post dialysis in room and prefers to rest when possible, as he was not able to rest well. PT is polite and cooperative with cares and medications. Denies further needs or concerns. Call light within reach; Will continue to monitor. CDA
--- NOTE | 2018-09-24 19:16 | NUR ---
Report received from Alda TURNER
[2018-09-24 19:54] VITALS: BP 124/62; PULSE 77; TEMP 98
--- NOTE | 2018-09-24 21:50 | NUR ---
Resting in bed. Assessment complete. Lungs clear. Heart sounds normal. No edema noted. Denies pain. Denies needs at this time. Call light in reach.
[2018-09-25 00:33] VITALS: BP 165/92; PULSE 71; TEMP 98
[2018-09-25 00:49] VITALS: BP 160/91
--- NOTE | 2018-09-25 01:37 | NUR ---
Resting in bed asleep. Call light in reach.
[2018-09-25 05:16] VITALS: BP 181/97; BP 186/98; PULSE 59; TEMP 97.5
[2018-09-25 05:31] VITALS: BP 185/94
[2018-09-25 07:41] VITALS: BP 161/99; PULSE 76; TEMP 98.8
[2018-09-25 08:21] LABS: BASO % 0.1 % (0.0-2.0); EOS # 0.1 (0.0-0.7); EOS % 0.9 % (0-4.0); GRAN # 9.1 (1.4-6.5); LYMPH # 3.9 (1.2-3.4); LYMPH % 27.9 % (20.0-51.0); MEAN CELL VOLUME 87 fl (80.0-100.0); MEAN CORPUSCULAR HGB CONC 32 g/dl (33.0-37.0); MONO # 0.8 (0.1-0.6); MONO % 5.7 % (1.7-9.3); PLATELET COUNT 251 K/mm3 (130-400); REDCELL DISTRIBUTION WIDTH-CV 17.2 % (11.5-14.5)
[2018-09-25 08:23] LABS: HEMATOCRIT 27.9 % (42.0-52.0); HEMOGLOBIN 8.9 g/dl (13.5-18.0); MEAN CORPUSCULAR HEMOGLOBIN 28 pg (27.0-31.0)
[2018-09-25 08:30] LABS: CALCIUM 8.5 mg/dL (8.4-10.2); CREATININE, serum 3.37 mg/dL (0.66-1.25); POTASSIUM 4.3 mmol/L (3.4-5.0)
--- NOTE | 2018-09-25 08:45 | NUR ---
PT is A+Ox3, walkign about room independently, denies bloody stools, dizziness, pain. Physical assessment completed. Dialysis catheter dressign CDI, INT s redness/swelling. No further needs, call light in reach
--- NOTE | 2018-09-25 08:54 | NUR ---
Pt is A+Ox3, pleasant, denies pain, nausea, denies any bloody stools since initial stool at home. Physical assessment completed, INT to RH s redness/swelling. Pt independen tin room, no further needs, call isrrael peter
[2018-09-25 11:10] VITALS: BP 143/85; PULSE 59; TEMP 97.9
[2018-09-25] MEDS ORDERED: PROTONIX 40MG T40 MG PO (11:37)
--- NOTE | 2018-09-25 13:24 | NUR ---
This RN reviewed discharge instructions with pt and , answered all questions. All personal items collected, pt escorted curbside. Rep delivered walker to pt, fit according to height, etc. No further needs
== END 2018-09-25 13:28 | disposition home or self-care (01) | DRG 919 ==
LOC: COL.ER 01:27 → ICU 02:29 → MEDICAL 02:29
PROVIDERS: Emergency Medicine; Internal Medicine Gastroenterology; ADMIT Internal Medicine
PROC: 0DJ08ZZ Inspection of Upper Intestinal Tract, Via Natural or Artificial Opening Endoscopic (ICD-10-PCS; principal; 2018-09-23 13:30)
PROC: 5A1D70Z Performance of Urinary Filtration, Intermittent, Less than 6 Hours Per Day (ICD-10-PCS; 2018-09-24)
DX: K91.840 Postprocedural hemorrhage of a digestive system organ or structure following a digestive system procedure (principal); N18.6 End stage renal disease; I12.0 Hypertensive chronic kidney disease with stage 5 chronic kidney disease or end stage renal disease; N17.9 Acute kidney failure, unspecified; D62 Acute posthemorrhagic anemia; Z99.2 Dependence on renal dialysis; D86.0 Sarcoidosis of lung; D63.1 Anemia in chronic kidney disease; F17.210 Nicotine dependence, cigarettes, uncomplicated
CPT/HCPCS: C9113; J2405; J2704; P9016

== ENCOUNTER 2018-09-30 10:19 | Emergency (ER) | payer MEDICAID ==
[~2018-09-30] VITALS: Ht 175.3 cm; Wt 82.7 kg
[~2018-09-30 10:19] MED LIST changes: +PROTONIX 40MG T40 MG PO
[2018-09-30 10:25] VITALS: TEMP 99.1
[2018-09-30 11:34] LABS: BASO % 0.4 % (0.0-2.0); EOS # 0.1 (0.0-0.7); EOS % 0.8 % (0-4.0); GRAN # 6.7 (1.4-6.5); GRAN % 63.5 % (42.2-75.2); LYMPH # 2.9 (1.2-3.4); LYMPH % 27.9 % (20.0-51.0); MEAN CELL VOLUME 87 fl (80.0-100.0); MEAN CORPUSCULAR HGB CONC 32 g/dl (33.0-37.0); MEAN PLATELET VOLUME 9.9 fl (7.4-10.4); MONO # 0.7 (0.1-0.6); MONO % 6.8 % (1.7-9.3); PLATELET COUNT 285 K/mm3 (130-400); RED BLOOD COUNT 3.12 M/mm3 (4.20-5.60); REDCELL DISTRIBUTION WIDTH-CV 17.3 % (11.5-14.5)
[2018-09-30 11:36] LABS: HEMATOCRIT 27.2 % (42.0-52.0); HEMOGLOBIN 8.6 g/dl (13.5-18.0); MEAN CORPUSCULAR HEMOGLOBIN 28 pg (27.0-31.0)
[2018-09-30 13:29] VITALS: BP 177/106; PULSE 68
== END 2018-09-30 13:30 | disposition home or self-care (01) ==
LOC: COL.ER 10:19
PROVIDERS: Emergency Medicine
DX: T82.49XA Other complication of vascular dialysis catheter, initial encounter (principal); N17.9 Acute kidney failure, unspecified; Z90.49 Acquired absence of other specified parts of digestive tract
CPT/HCPCS: J3370; J7050

== ENCOUNTER 2018-11-18 08:06 | Outpatient (CLI) | payer MEDICAID ==
[~2018-11-18] VITALS: Ht 175.4 cm; Wt 84.0 kg
[2018-11-18] VITALS (7 sets, daily range): BP systolic 172–183; BP diastolic 112–123; PULSE 84–89; TEMP 97.9
[2018-11-18] MEDS ORDERED: NORVASC 10MG10 MG PO (08:56)
[2018-11-18] MEDS ORDERED: ALDACTONE 25MG25 M1 PO (08:57)
[2018-11-18] MEDS ORDERED: NITRO-DUR0.4 MG/PAT TD (08:58)
[2018-11-18] MEDS ORDERED: COREG12.5 MG PO (08:59)
[2018-11-18] MEDS ORDERED: APRESOLINE 10MG10 MG PO (09:03)
[2018-11-18] MEDS ORDERED: ZESTRIL 10MG10 MG PO (09:05)
--- NOTE | 2018-11-18 12:25 | NUR ---
Pt returned to EU 10 per bed s/p dialysis cath exchange. Pt resting well, at bedside. Slight blood noted on R chest dialysis cath drsg, edges marked.
--- NOTE | 2018-11-18 13:55 | NUR ---
blood bank laboratory technician notified of drainage and will come redress site.
--- NOTE | 2018-11-18 14:00 | NUR ---
Report to Seth Ramirez RN who assumed care at this time.
--- NOTE | 2018-11-18 14:11 | NUR ---
Discharge instructions given to pt.Pt verbalizes understanding.
--- NOTE | 2018-11-18 14:18 | NUR ---
Pt escorted out via wheelchair by this nurse.
== END 2018-11-18 14:20 | disposition home or self-care (01) ==
LOC: COL.CAR 08:06
DX: T82.41XA Breakdown (mechanical) of vascular dialysis catheter, initial encounter (principal); N18.6 End stage renal disease; F17.210 Nicotine dependence, cigarettes, uncomplicated; F14.11 Cocaine abuse, in remission
CPT/HCPCS: C1769; J1644

== ENCOUNTER 2018-11-30 14:42 | Inpatient (IN) | payer MEDICAID ==
[~2018-11-30] VITALS: Ht 175.3 cm; Wt 98.7 kg
[~2018-11-30 14:42] MED LIST changes: +NORVASC 10MG10 MG PO; +ZESTRIL 10MG10 MG PO
[2018-11-30 16:29] VITALS: BP 157/91; PULSE 86; TEMP 98.1
[2018-11-30 18:30] LABS: HEMATOCRIT 38.3 % (42.0-52.0); HEMOGLOBIN 12.5 g/dl (13.5-18.0); MEAN CELL VOLUME 82 fl (80.0-100.0); MEAN CORPUSCULAR HEMOGLOBIN 27 pg (27.0-31.0); MEAN CORPUSCULAR HGB CONC 33 g/dl (33.0-37.0); MEAN PLATELET VOLUME 9.4 fl (7.4-10.4); PLATELET COUNT 266 K/mm3 (130-400); RED BLOOD COUNT 4.66 M/mm3 (4.20-5.60)
[2018-11-30 18:34] LABS: INR 0.8 (0.8-3.0); PROTHROMBIN TIME 9.5 SECONDS (9.7-12.8)
--- NOTE | 2018-11-30 19:16 | NUR ---
Initial assessment completed. Majority of questions answered per the patient and some were answered per the . No pain or needs at this time. Plan to start IV in the AM with AIVS-sonogram. Bed alarm is in place and report given to YUE Jon to resume care.
--- NOTE | 2018-11-30 19:42 | NUR ---
Patient sitting up in bed eating dinner. Denies pain. Assessment completed- dailysis catheter to right chest C/D/I. Fistula to left forearm- thrill/bruit felt/auscultated. Elevated BP, given apresoline PRN. No IV at this time- pt will be getting IV tomorrow morning with YUE Meyer. Pt requested another pillow- given. NO further needs at this time.
[2018-11-30 20:14] VITALS: BP 172/103; PULSE 90; TEMP 98.3
[2018-11-30 23:35] VITALS: BP 169/105; PULSE 98; TEMP 98.7
[2018-12-01] VITALS (12 sets, daily range): BP systolic 123–189; BP diastolic 51–162; PULSE 75–98; TEMP 97.5–98.2
--- NOTE | 2018-12-01 05:27 | NUR ---
Pt slept most of the night. NPO since midnight. Ambulated with SBA and cane to restroom. Strict I/O's. NO further needs at this time.
--- NOTE | 2018-12-01 07:16 | NUR ---
Report given to YUE Prasad. Patient assisted to restroom. Returned to bed. Consent signed for procedure this morning.
--- NOTE | 2018-12-01 07:16 | NUR ---
Bedside report recieved, patient laying bed awake. Denies needs at this time. Wants to know what time procedure will be, canvas shop laborer called and will return call after speaks to Radiologist. Patient remains NPO, call light at side.
--- NOTE | 2018-12-01 11:25 | NUR ---
To Fiber Optics Engineer for procdure via bed with Madison TURNER and Judit ALBRIGHT at bedside. Consent signed and on chart.
--- NOTE | 2018-12-01 11:44 | NUR ---
To circus laborer for scheduled procedure with Madison TURNER and Judit ALBRIGHT at bedside, also at bedside Consent signed and on chart.
--- NOTE | 2018-12-01 12:15 | NUR ---
ALL MEDICATIONS GIVEN WITH VERBAL ORDER AND READBACK WITH MD. SEE MERGE FOR ALL MEDICATION ADMIN TIMES. SEE MERGE FOR ALL RASS ASSESSMENTS DURING AND POST PROCEDURE.
--- NOTE | 2018-12-01 12:45 | NUR ---
Returns from Psychiatric Assistant, awake and alert. Denies complaints. Dressing CDI. Will await discharge vs HD today.
--- NOTE | 2018-12-01 13:27 | NUR ---
MOHINI met with the patient and patient's , Jairon, to discuss discharge plan. The patient lives in [place] with his and four children. He reports needing assistance with bathing and has a cane and walker. The patient reports that his is able to provide assistance for bathing. The patient receives primary care at the [facility] in [place] and he receives his medications at the [facility]. The patient's reports no difficulties obtaining his meds. The patient does not have advanced directives in EMR, but the patient's reports that the patient does have them completed. The patient plans to return home with his family upon discharge. No additional needs at this time.
--- NOTE | 2018-12-01 14:40 | NUR ---
To dialysis via WC per HELIARC WELDER, at side.
--- NOTE | 2018-12-01 17:50 | NUR ---
Returns to room after dialysis via wheelchair with at side. No discharge tonight dt dialysis cath slow to pull for dialysis today. Dr. Sanders will see tomorrow and decide on HDC revision or additional dialysis tomorrow per Srikanth TURNER in HD.
--- NOTE | 2018-12-01 18:51 | NUR ---
Bedside report given to Danay TURNER.
--- NOTE | 2018-12-01 19:16 | NUR ---
Patient resting in bed watching tv. Assessment completed- lung sounds clear, abomdinal sounds active, left forearm fistula thrill/bruit present. Right chest dialysis catheter covered in gauze- minor drainage- reported from day shift- no change. Pt aware of NPO status at midnight. Denies pain. No n ausea/vomiting. IV to right hand shows no redness/edema. No further needs at this time.
--- NOTE | 2018-12-01 22:00 | NUR ---
Pt experienced and episode of emesis, around 300 mls measured. Patient now sitting up in bed with bucket in case of another episode, cool washrag applied to back of the neck. bed alarm on, call isrrael peter .Patient has no othe rneeds at this time, will alert this nurse if experiencing more nausea/vomiting
[2018-12-02] VITALS (7 sets, daily range): BP systolic 160–177; BP diastolic 96–111; PULSE 78–92; TEMP 97.7–98.9
--- NOTE | 2018-12-02 04:41 | NUR ---
BP elevated, given PO hydralazine
--- NOTE | 2018-12-02 05:11 | NUR ---
Patient slept on/off last night. Elevated BP, given apresoline x2. Given dilaudid x2. 1 episode of emesis earlier in the shift, no further nausea/vomiting.
--- NOTE | 2018-12-02 07:00 | NUR ---
Report given to YUE Coffman. Patient resting in bed. No needs at this time.
--- NOTE | 2018-12-02 07:49 | NUR ---
Pt A&Ox3. Resting in bed with eyes closed. Shift assessment as charted. Denies any needs at this time.
--- NOTE | 2018-12-02 11:00 | NUR ---
Assessment complete.patient awake,alert and oriented x3.breathing even and unlabored.LSCTA.c/o pain to left chest dialysis catheter.rates pain at 7/10.PRN dilaudid given.Gauze and tegaderm dressing CDI.no drainage noted from site.patient has left foremarm fistula which is macturing.patient denies any other needs at this time.will continue to monitor.call light in reach
--- NOTE | 2018-12-02 11:30 | NUR ---
pt had Student assisting this RN with cares for part of the shift.
--- NOTE | 2018-12-02 13:48 | NUR ---
Primary nurse was assisted with [phone] patient care by [employer] student Tanesha Chadwick and [employer] instructor Mireille Saeed RN-.
--- NOTE | 2018-12-02 18:09 | NUR ---
HERE TO SEE PATIENT.PATIENT REPORTS PAIN HAS IMPROVED.DENIES ANY FURTHER NEEDS.CALL LIGHT IN REACH
--- NOTE | 2018-12-02 21:05 | NUR ---
Patient sitting up in bed. Assessment completed- left forearm fistula bruit/thrill present. Right IJ dialysis catheter C/D/I. Denies pain. LUng sounds clear, abomdinal sonds active. Ambulatory with cane. Has no further needs at this time.
[2018-12-03 03:54] VITALS: BP 162/93; PULSE 81; TEMP 98.2
--- NOTE | 2018-12-03 05:12 | NUR ---
Pt slept on/off last night. Ambulatory/independent. No needs at this time.
--- NOTE | 2018-12-03 07:16 | NUR ---
Report given to YUE Stubbs. Pt resting in bed with student nurse at bedside.
--- NOTE | 2018-12-03 07:48 | NUR ---
Patient is awake and alert upon entering room. Immediately states he is "getting out of here today." Verbalizes he misses his kids and just wants to be home. Is alert and oriented, very plesant. Lungs are clear. Bowel sounds active in all quadrants. Heart rate is regular. Does state he is having some and "I'm due for my pain shot." PRN pain medication to be administered by student. No edema is noted. Left FA fistula assessed, bruit noted. Patient is independent in room with cane. IV patent to right hand. No other needs verbalized. Call light is within reach.
[2018-12-03 07:51] VITALS: BP 183/98; PULSE 83; TEMP 98.1
--- NOTE | 2018-12-03 08:30 | NUR ---
Pt resting in bed with eyes closed. Assessment performed and charted. Vital signs charted. Rated pain at tunneled catheter site at a 7 out of 10 on the numerical pain scale. Dilaudid IV administered. Denies any further needs at this time. Preparing for taking pt down to dialysis at this time.
[2018-12-03 09:17] LABS: PROTHROMBIN TIME 10.8 SECONDS (9.7-12.8)
[2018-12-03] MEDS ORDERED: COREG12.5 MG PO (09:27)
[2018-12-03] MEDS ORDERED: NORVASC 10MG10 MG PO (09:27)
[2018-12-03 09:28] LABS: ALBUMIN 3.9 gm/dL (3.5-5.0); CALCIUM 9.2 mg/dL (8.4-10.2); CREATININE, serum 3.28 mg/dL (0.66-1.25); POTASSIUM 4.1 mmol/L (3.4-5.0)
[2018-12-03] MEDS ORDERED: ASPIRIN E.C. 8181 MG PO (09:28)
[2018-12-03] MEDS ORDERED: COUMADIN 1MG1 MG/TAB PO (09:34)
[2018-12-03 12:55] VITALS: BP 135/91; PULSE 90; TEMP 98.1
--- NOTE | 2018-12-03 13:50 | NUR ---
Primary nurse was assisted with [phone] patient care by [employer] student Tanesha Chadwick and [employer] instructor Mireille Saeed RN-.
--- NOTE | 2018-12-03 14:49 | NUR ---
Patient discharged at 1400 accompanied by spouse. Declined to use wheelchair. Encouraged to wait for spouse to drive car to doors and patient declined. Observed walking to car in parking lot.
== END 2018-12-03 14:00 | disposition home or self-care (01) | DRG 286 ==
LOC: MEDICAL 14:42
PROVIDERS: ADMIT Internal Medicine Nephrology
PROC: 0JH60XZ Insertion of Tunneled Vascular Access Device into Chest Subcutaneous Tissue and Fascia, Open Approach (ICD-10-PCS; principal; 2018-12-01)
PROC: B2141ZZ Fluoroscopy of Right Heart using Low Osmolar Contrast (ICD-10-PCS; 2018-12-01)
PROC: 02H633Z Insertion of Infusion Device into Right Atrium, Percutaneous Approach (ICD-10-PCS; 2018-12-01)
PROC: 02PA33Z Removal of Infusion Device from Heart, Percutaneous Approach (ICD-10-PCS; 2018-12-01)
PROC: 5A1D70Z Performance of Urinary Filtration, Intermittent, Less than 6 Hours Per Day (ICD-10-PCS; 2018-12-01)
PROC: 5A1D70Z Performance of Urinary Filtration, Intermittent, Less than 6 Hours Per Day (ICD-10-PCS; 2018-12-03)
DX: T82.49XA Other complication of vascular dialysis catheter, initial encounter (principal); N18.6 End stage renal disease; I12.0 Hypertensive chronic kidney disease with stage 5 chronic kidney disease or end stage renal disease; R41.82 Altered mental status, unspecified; D63.1 Anemia in chronic kidney disease; G62.9 Polyneuropathy, unspecified; G47.33 Obstructive sleep apnea (adult) (pediatric); Z99.2 Dependence on renal dialysis; Z87.891 Personal history of nicotine dependence
CPT/HCPCS: C1751; J1170; J1644; J2250; J3010; J7030

== ENCOUNTER 2018-12-04 19:28 | Emergency (ER) | payer MEDICAID ==
[~2018-12-04] VITALS: Ht 175.3 cm; Wt 84.0 kg
[~2018-12-04 19:28] MED LIST changes: +ASPIRIN E.C. 8181 MG PO; +COUMADIN 1MG1 MG/TAB PO
[2018-12-04 19:51] VITALS: TEMP 98.7
[2018-12-04 20:37] LABS: BASO # 0.1 (0.0-0.2); BASO % 0.4 % (0.0-2.0); EOS # 0.2 (0.0-0.7); EOS % 1.3 % (0-4.0); GRAN % 56.2 % (42.2-75.2); HEMATOCRIT 43.6 % (42.0-52.0); HEMOGLOBIN 13.6 g/dl (13.5-18.0); LYMPH # 4.5 (1.2-3.4); LYMPH % 31.8 % (20.0-51.0); MEAN CELL VOLUME 84 fl (80.0-100.0); MEAN CORPUSCULAR HEMOGLOBIN 26 pg (27.0-31.0); MEAN CORPUSCULAR HGB CONC 31 g/dl (33.0-37.0); MEAN PLATELET VOLUME 9.8 fl (7.4-10.4); MONO # 1.4 (0.1-0.6); MONO % 10.1 % (1.7-9.3); PLATELET COUNT 276 K/mm3 (130-400); RED BLOOD COUNT 5.21 M/mm3 (4.20-5.60)
[2018-12-04 20:49] LABS: ALBUMIN 4.3 gm/dL (3.5-5.0); BILIRUBIN,TOTAL 0.2 mg/dL (0.0-1.0); C-REACTIVE PROTEIN 0.6 mg/dL (0.0-0.9); CALCIUM 9.6 mg/dL (8.4-10.2); CREATININE, serum 2.75 mg/dL (0.66-1.25); INR 0.9 (0.8-3.0); POTASSIUM 4.6 mmol/L (3.4-5.0); PROTHROMBIN TIME 10.2 SECONDS (9.7-12.8); TOTAL PROTEIN 8.5 gm/dL (6.4-8.2)
[2018-12-04 20:58] LABS: TROPONIN-I 0.019 ng/mL (0.000-0.035)
[2018-12-04 22:05] VITALS: BP 178/124; PULSE 88
== END 2018-12-04 22:05 | disposition home or self-care (01) ==
LOC: COL.ER 19:28
PROVIDERS: Emergency Medicine
DX: R51 Headache (principal); R07.89 Other chest pain; I10 Essential (primary) hypertension; N18.6 End stage renal disease; Z99.2 Dependence on renal dialysis; Z79.82 Long term (current) use of aspirin; Z79.01 Long term (current) use of anticoagulants

== ENCOUNTER 2018-12-10 23:36 | Emergency (ER) | payer MEDICAID ==
[~2018-12-10] VITALS: Ht 175.3 cm; Wt 84.7 kg
[2018-12-10 23:40] VITALS: TEMP 98.8
[2018-12-11 00:43] LABS: BASO # 0.1 (0.0-0.2); BASO % 0.4 % (0.0-2.0); EOS # 0.2 (0.0-0.7); EOS % 1.2 % (0-4.0); GRAN # 7.9 (1.4-6.5); GRAN % 57.7 % (42.2-75.2); HEMATOCRIT 43.6 % (42.0-52.0); HEMOGLOBIN 13.9 g/dl (13.5-18.0); LYMPH # 4.1 (1.2-3.4); LYMPH % 29.5 % (20.0-51.0); MEAN CELL VOLUME 82 fl (80.0-100.0); MEAN CORPUSCULAR HEMOGLOBIN 26 pg (27.0-31.0); MEAN CORPUSCULAR HGB CONC 32 g/dl (33.0-37.0); MEAN PLATELET VOLUME 9.6 fl (7.4-10.4); MONO # 1.5 (0.1-0.6); MONO % 10.9 % (1.7-9.3); PLATELET COUNT 308 K/mm3 (130-400); RED BLOOD COUNT 5.32 M/mm3 (4.20-5.60); REDCELL DISTRIBUTION WIDTH-CV 14.5 % (11.5-14.5)
[2018-12-11] MEDS ORDERED: REGLAN 5MG T5 MG/TAB PO (00:47)
[2018-12-11] MEDS ORDERED: ZAROXOLYN 2.52.5 MG PO (00:48)
[2018-12-11] MEDS ORDERED: LASIX 20MG TABL20 MG PO (00:49)
[2018-12-11] MEDS ORDERED: APRESOLINE 10MG10 MG PO (00:50)
[2018-12-11 02:17] LABS: INR 0.9 (0.8-3.0); PROTHROMBIN TIME 10.6 SECONDS (9.7-12.8)
[2018-12-11 02:20] LABS: PARTIAL THROMBOPLASTIN TIME 32.4 SECONDS (26.0-37.0)
[2018-12-11 02:22] LABS: ALBUMIN 4.3 gm/dL (3.5-5.0); BILIRUBIN,TOTAL 0.2 mg/dL (0.0-1.0); CALCIUM 9.6 mg/dL (8.4-10.2); MAGNESIUM 1.9 mg/dL (1.6-2.3); POTASSIUM 4.2 mmol/L (3.4-5.0); TOTAL PROTEIN 8.6 gm/dL (6.4-8.2)
[2018-12-11 02:25] LABS: CREATININE, serum 4.41 (0.66-1.25)
[2018-12-11 02:34] LABS: TROPONIN-I 0.027 ng/mL (0.000-0.035)
[2018-12-11 02:38] LABS: PROLACTIN 19.3 ng/mL (3.7-17.9)
[2018-12-11 04:07] VITALS: BP 168/105; PULSE 86
== END 2018-12-11 04:08 | disposition home or self-care (01) ==
LOC: COL.ER 23:36
PROVIDERS: Emergency Medicine
DX: R41.82 Altered mental status, unspecified (principal); F17.210 Nicotine dependence, cigarettes, uncomplicated; Z79.82 Long term (current) use of aspirin; Z79.01 Long term (current) use of anticoagulants
CPT/HCPCS: J3010

== ENCOUNTER 2018-12-20 20:30 | Inpatient (IN) | payer SELFPAY ==
[~2018-12-20] VITALS: Ht 175.3 cm; Wt 83.3 kg
[~2018-12-20 20:30] MED LIST changes: +LASIX 20MG TABL20 MG PO; +REGLAN 5MG T5 MG/TAB PO; +ZAROXOLYN 2.52.5 MG PO
[2018-12-20 23:27] LABS: MEAN CELL VOLUME 81 fl (80.0-100.0); MEAN CORPUSCULAR HEMOGLOBIN 26 pg (27.0-31.0); MEAN CORPUSCULAR HGB CONC 32 g/dl (33.0-37.0); MEAN PLATELET VOLUME 9.6 fl (7.4-10.4); PLATELET COUNT 383 K/mm3 (130-400); RED BLOOD COUNT 5.42 M/mm3 (4.20-5.60)
[2018-12-20 23:42] LABS: ALBUMIN 4.6 gm/dL (3.5-5.0); BILIRUBIN,TOTAL 0.2 mg/dL (0.0-1.0); CALCIUM 9.9 mg/dL (8.4-10.2); TOTAL PROTEIN 9.2 gm/dL (6.4-8.2)
[2018-12-20 23:43] LABS: CREATININE, serum 4.77 (0.66-1.25)
[2018-12-20 23:45] LABS: C-REACTIVE PROTEIN 0.5 mg/dL (0.0-0.9); EOSINOPHIL 1 % (0-4); LYMPHOCYTE 43 % (20.0-51.0); NEUTROPHILS 49 % (42.0-75.2); PLATELET ESTIMATE NORMAL (NORMAL); POTASSIUM 5.8 mmol/L (3.4-5.0)
[2018-12-20 23:46] LABS: HYPOCHROMIA 2+
[2018-12-20 23:47] LABS: TEAR DROP CELLS 2+
[2018-12-20 23:52] LABS: TROPONIN-I 0.138 ng/mL (0.000-0.035)
[2018-12-21] VITALS (7 sets, daily range): BP systolic 117–182; BP diastolic 92–112; PULSE 78–88; TEMP 98–98.8
[2018-12-21 00:32] LABS: COLLECTION METHOD CLEAN CATCH
[2018-12-21 00:35] LABS: INR 0.9 (0.8-3.0); PROTHROMBIN TIME 10.6 SECONDS (9.7-12.8)
[2018-12-21 00:37] LABS: PARTIAL THROMBOPLASTIN TIME 35.3 SECONDS (26.0-37.0)
[2018-12-21 00:45] LABS: PH 7 (5-8); SQUAMOUS EPITHELIAL None Seen /hpf; URINE APPEARANCE Clear; URINE BACTERIA None Seen /hpf; URINE BILIRUBIN Negative (NEGATIVE); URINE BLOOD Negative (NEGATIVE); URINE COLOR Yellow; URINE GLUCOSE Negative (NEGATIVE); URINE KETONE Negative (NEGATIVE); URINE LEUKOCYTE ESTERASE Negative (NEGATIVE); URINE NITRATE Negative (NEGATIVE); URINE PROTEIN(semi-quant) 2+ (NEGATIVE); URINE RBC 0-2 /hpf; URINE UROBILINOGEN Negative (NEGATIVE)
--- NOTE | 2018-12-21 02:20 | NUR ---
Pt arrived to room 356, transferred per wheelchair by ED staff. Pt awake, a&o, cooperative c cares. at bedside. Pt/wi oriented to room, unit policies et current POC. Questions invited et answered, both verbalize understanding. No needs at this time. Call light in reach. Will continue c admit process.
--- NOTE | 2018-12-21 12:30 | NUR ---
Pt to dialysis via wheelchair
--- NOTE | 2018-12-21 17:54 | NUR ---
Pt spent most of the afternoon in dialysis. Pt is lying in bed. c/o pain to back at 7/10. Dr. Sanders notified of pt request for pain medication and order for Tylenol received. Pt also has questions about his home medications. Reviewed home meds ordered and which meds were held. Pt denies other questions or needs at this time. Call light within reach.
--- NOTE | 2018-12-21 20:00 | NUR ---
Shift assessment complete. Pt resting in bed, awake, a&o, cooperative c cares. Pt reports continued pain to abd "05/24" as well as L shoulder and HD cath site "03/23", states the Tylenol "did nothing". Will notify . Pt denies any other c/o. INT patent. HD cath noted to R chest; AVF to L forearm. Pt denies needs. Call light in reach, will monitor.
[2018-12-22] VITALS (15 sets, daily range): BP systolic 158–225; BP diastolic 95–140; PULSE 66–89; TEMP 97.7–98.4
[2018-12-22 06:54] LABS: HEMATOCRIT 45.5 % (42.0-52.0); HEMOGLOBIN 14.1 g/dl (13.5-18.0); MEAN CELL VOLUME 82 fl (80.0-100.0); MEAN CORPUSCULAR HEMOGLOBIN 26 pg (27.0-31.0); MEAN CORPUSCULAR HGB CONC 31 g/dl (33.0-37.0); MEAN PLATELET VOLUME 9.4 fl (7.4-10.4); PLATELET COUNT 380 K/mm3 (130-400); RED BLOOD COUNT 5.53 M/mm3 (4.20-5.60); REDCELL DISTRIBUTION WIDTH-CV 14.3 % (11.5-14.5)
[2018-12-22 07:02] LABS: CALCIUM 9.7 mg/dL (8.4-10.2); POTASSIUM 5.3 mmol/L (3.4-5.0)
[2018-12-22 07:05] LABS: CREATININE, serum 4.29 (0.66-1.25)
--- NOTE | 2018-12-22 09:34 | NUR ---
Assessment completed, alert/oriented, vital signs stable/ hypertensive, reports chst discomfort is still present but is improved, Nitro patch placed to left chest and schedule cardiac meds given, he has been NPO for heart cath around 1200, heart RRR/distal pusles are palapble, lungs CTA/ no resp difficulty noted, family present in the room ,denies needs at this time
--- NOTE | 2018-12-22 12:24 | NUR ---
First visit from the fiction and nonfiction prose writer. prayed with patient. No other needs right now.
--- NOTE | 2018-12-22 12:57 | NUR ---
SEE MERGE REPORT FOR MEDICATION ADMINISTRATION TIMES AND INTRA/POST PROCEDURE SEDATION ASSESSMENTS.
--- NOTE | 2018-12-22 13:04 | NUR ---
Álvaro from [employer] met with patient to discuss lapse in medicare yesterday 12/21. SW contacted for an update on insurance status, message left. Patient in Cardiac cath will attemt to complete intake when he returns.
--- NOTE | 2018-12-22 13:50 | NUR ---
Patient arrived back to the Medical floor from Cath labs at this time, he is alert/oriented, vital signs stable/ remains HTN but med adjustments have been made, he had right radial compression band in place and has 11cc air in it, will begin to deflate at 1600 per orders, will continue to monitor
--- NOTE | 2018-12-22 14:10 | NUR ---
MOHINI welsh met with patient to discuss discharge plan. Patient lives in [place] with his (Jairon) and kids. He follows up at the [facility] in [place] and uses the [facility] in [place]. Patient reports occasional difficulties obtaining his meds but has recieved assistance from [facility] and [facility] in the past. Patient uses a walker or cane regularly and receives assistance from his with bathing and going to the restroom. Patient does not have any services. Patient believes he has DPOA-HC completed at home. No identified needs at this time.
--- NOTE | 2018-12-22 15:26 | NUR ---
Continued to do well post heart cath, vitals stable, no bleeding at radial access site, tolerating PO intake well
--- NOTE | 2018-12-22 17:23 | NUR ---
have attempted to deflate patient radial compression band at 1605 and it began to bleed so I reinflated ballon, a second attempt was done at 1715 and it immediatley began to ooze blood again/ I reinflated the ballon, will continue to monitor
--- NOTE | 2018-12-22 18:48 | NUR ---
continues to do well post heart cath, we have removed a total of 5cc from TR band with NO bleeding noted at this time, I have given report to shift supervisor melting and instructed that their is 6cc left in band and to removed in small amounts as patient has issue with oozing today, he is still HTN and Coreg given, will continue to monitor
[2018-12-23] VITALS (7 sets, daily range): BP systolic 144–208; BP diastolic 85–143; PULSE 71–79; TEMP 97.5–98.2
--- NOTE | 2018-12-23 04:28 | NUR ---
Patient had pain to right wrist tonight, and was given PRN Ultram around 1930 and 0. No further complaints of pain or discomfort. Air fully removed from band to right wrist. Patient's BPs remain elevated. Denies having chest pain and discomfort. Voices no needs or concerns at this time. Resting in bed with eyes closed at this time. Call light is within reach.
--- NOTE | 2018-12-23 07:48 | NUR ---
Assessment completed, alert/oriented, patient remains very HTN despite medicaiton adjustments / other Vital signs stable, denies any further chest pain or discomfort, heart RRR/ distal pulses are palapble, lungs CTA/ no resp.difficulty noted, right radial cath access site is Clean and dry with no bleeding or hematoma noted, TR band deflated but still in place, left arm fistula looks good + bruit/ thrill, right chest HD cath dressing C/D/I, patient refuses breakfast, plan is to dialyze sometime this morning, denies othr needs at this time
--- NOTE | 2018-12-23 09:00 | NUR ---
TRANSPORTING PATIENT DOWN TO DIALYSIS IN IMCU #18
[2018-12-23] MEDS ORDERED: COREG 25MG25 MG/TAB PO (09:48)
[2018-12-23] MEDS ORDERED: APRESOLINE 25MG25 MG PO (09:50)
[2018-12-23 09:58] LABS: BASO # 0.1 (0.0-0.2); BASO % 0.5 % (0.0-2.0); EOS # 0.2 (0.0-0.7); EOS % 1.8 % (0-4.0); GRAN # 5.3 (1.4-6.5); GRAN % 49.2 % (42.2-75.2); HEMATOCRIT 46.9 % (42.0-52.0); HEMOGLOBIN 14.7 g/dl (13.5-18.0); LYMPH # 4.5 (1.2-3.4); LYMPH % 41.3 % (20.0-51.0); MEAN CELL VOLUME 83 fl (80.0-100.0); MEAN CORPUSCULAR HEMOGLOBIN 26 pg (27.0-31.0); MEAN CORPUSCULAR HGB CONC 31 g/dl (33.0-37.0); MEAN PLATELET VOLUME 9.5 fl (7.4-10.4); MONO # 0.7 (0.1-0.6); MONO % 6.8 % (1.7-9.3); PLATELET COUNT 366 K/mm3 (130-400); RED BLOOD COUNT 5.68 M/mm3 (4.20-5.60); REDCELL DISTRIBUTION WIDTH-CV 14.4 % (11.5-14.5)
[2018-12-23 10:08] LABS: ALBUMIN 4.6 gm/dL (3.5-5.0); BILIRUBIN,TOTAL 0.3 mg/dL (0.0-1.0); CALCIUM 9.6 mg/dL (8.4-10.2); CREATININE, serum 3.63 (0.66-1.25); POTASSIUM 3.9 mmol/L (3.4-5.0); TOTAL PROTEIN 9.5 gm/dL (6.4-8.2)
[2018-12-23 19:33] LABS: RETIC # 0.1 M/mm3 (0.02-0.16); RETIC % 1.7 % (0.5-3.52)
--- NOTE | 2018-12-23 22:55 | NUR ---
Patient assessed around 2039. Complained of pain to left shoulderblade. Given PRN Ultram as requested for pain. Denies having dizziness, and nausea at this time. Denies having any questions, concerns, or needs at this time. Resting in bed with eyes closed. Call light is within reach.
[2018-12-24 00:37] VITALS: BP 151/97; PULSE 78; TEMP 97.9
[2018-12-24 04:12] VITALS: BP 150/94; PULSE 78; TEMP 98.3
--- NOTE | 2018-12-24 04:23 | NUR ---
Patient has had pain to left shoulderblade during the night. Received PRN Ultram twice as requested. Voices no other needs or concerns at this time. Patient has denied having nausea, dizziness, and lightheadedness throughout the night. Resting in bed with eyes closed at this time. Call light is within reach.
[2018-12-24 07:47] VITALS: BP 162/95; PULSE 77; TEMP 98.1
--- NOTE | 2018-12-24 08:00 | NUR ---
Patient in bed resting. Alert and oriented x 3. Shift assessment complete. Denies pain at this time. Denies furthre needs at this time.
--- NOTE | 2018-12-24 08:00 | NUR ---
Patient in bed resting. Alert and oriented x 3. Shift assessment complete. Denies pain at this time. HD cath to right chest with dressing, CDI. Radial cath site is CDI. Left arm fistula with good bruit/thrill. Denies further needs at this time.
--- NOTE | 2018-12-24 11:00 | NUR ---
Dr. Sanders in to see patient.
[2018-12-24] MEDS ORDERED: LOPID 600M600 MG/TAB PO (11:14)
--- NOTE | 2018-12-24 12:00 | NUR ---
Discharge instructions provided to patient. Educated on diet and importance of maintaining follow up appointments. Family in room, denies pain or further needs at this time. Patient ambulated out with medical staff.
== END 2018-12-24 12:00 | disposition home or self-care (01) | DRG 286 ==
LOC: COL.ER 20:30 → MEDICAL 12-21 00:52
PROVIDERS: Emergency Medicine; Internal Medicine Nephrology; ADMIT Hospitalist
PROC: 5A1D70Z Performance of Urinary Filtration, Intermittent, Less than 6 Hours Per Day (ICD-10-PCS; 2018-12-21)
PROC: B2111ZZ Fluoroscopy of Multiple Coronary Arteries using Low Osmolar Contrast (ICD-10-PCS; principal; 2018-12-22)
PROC: 5A1D70Z Performance of Urinary Filtration, Intermittent, Less than 6 Hours Per Day (ICD-10-PCS; 2018-12-23)
DX: I16.0 Hypertensive urgency (principal); N18.6 End stage renal disease; I12.0 Hypertensive chronic kidney disease with stage 5 chronic kidney disease or end stage renal disease; I25.10 Atherosclerotic heart disease of native coronary artery without angina pectoris; Z99.2 Dependence on renal dialysis; D63.1 Anemia in chronic kidney disease; Z87.891 Personal history of nicotine dependence; I08.0 Rheumatic disorders of both mitral and aortic valves; I95.2 Hypotension due to drugs; T46.5X5A Adverse effect of other antihypertensive drugs, initial encounter; D86.9 Sarcoidosis, unspecified; E87.5 Hyperkalemia; M25.512 Pain in left shoulder
CPT/HCPCS: J1644; J2250; J2270; J2405; J3010; J7030; Q9967

== ENCOUNTER 2019-01-03 12:07 | Emergency (ER) | payer SELFPAY ==
[~2019-01-03] VITALS: Ht 175.3 cm; Wt 79.5 kg
[~2019-01-03 12:07] MED LIST changes: +LOPID 600M600 MG/TAB PO
[2019-01-03 12:09] VITALS: TEMP 98.6
[2019-01-03 13:13] LABS: BASO # 0.1 (0.0-0.2); BASO % 0.5 % (0.0-2.0); EOS # 0.2 (0.0-0.7); EOS % 1.7 % (0-4.0); GRAN # 6.5 (1.4-6.5); GRAN % 62.4 % (42.2-75.2); HEMATOCRIT 41.7 % (42.0-52.0); HEMOGLOBIN 13.2 g/dl (13.5-18.0); LYMPH # 2.5 (1.2-3.4); LYMPH % 24.3 % (20.0-51.0); MEAN CELL VOLUME 82 fl (80.0-100.0); MEAN CORPUSCULAR HEMOGLOBIN 26 pg (27.0-31.0); MEAN CORPUSCULAR HGB CONC 32 g/dl (33.0-37.0); MEAN PLATELET VOLUME 9.2 fl (7.4-10.4); MONO # 1.1 (0.1-0.6); MONO % 10.7 % (1.7-9.3); PLATELET COUNT 271 K/mm3 (130-400); RED BLOOD COUNT 5.11 M/mm3 (4.20-5.60); REDCELL DISTRIBUTION WIDTH-CV 14.6 % (11.5-14.5)
[2019-01-03 13:25] LABS: PROTHROMBIN TIME 10.8 SECONDS (9.7-12.8)
[2019-01-03 13:26] LABS: BILIRUBIN,TOTAL 0.2 mg/dL (0.0-1.0); CALCIUM 9.3 mg/dL (8.4-10.2); CREATININE, serum 4.07 (0.66-1.25); POTASSIUM 3.7 mmol/L (3.4-5.0); TOTAL PROTEIN 8.1 gm/dL (6.4-8.2)
[2019-01-03 13:28] LABS: PARTIAL THROMBOPLASTIN TIME 32.1 SECONDS (26.0-37.0)
[2019-01-03] MEDS ORDERED: NORCO 325 MG-51 TAB PO (15:03)
[2019-01-03 15:11] VITALS: BP 153/98; PULSE 79
== END 2019-01-03 15:14 | disposition home or self-care (01) ==
LOC: COL.ER 12:07
PROVIDERS: Emergency Medicine
DX: M54.2 Cervicalgia (principal); I12.0 Hypertensive chronic kidney disease with stage 5 chronic kidney disease or end stage renal disease; N18.6 End stage renal disease; Z99.2 Dependence on renal dialysis; Z79.01 Long term (current) use of anticoagulants; Z79.82 Long term (current) use of aspirin

== ENCOUNTER 2019-02-09 06:06 | Outpatient (CLI) | payer MEDICARE ==
[~2019-02-09] VITALS: Ht 175.4 cm; Wt 83.0 kg
[2019-02-09] VITALS (9 sets, daily range): BP systolic 127–150; BP diastolic 86–110; PULSE 63–86; TEMP 97.4–97.7
[~2019-02-09 06:06] MED LIST changes: +NORCO 325 MG-51 TAB PO
[2019-02-09] MEDS ORDERED: COREG 25MG25 MG/TAB PO (07:10)
[2019-02-09] MEDS ORDERED: APRESOLINE 25MG25 MG PO (07:12)
[2019-02-09] MEDS ORDERED: LOPID 600M600 MG/TAB PO (07:13)
[2019-02-09] MEDS ORDERED: APRESOLINE 10MG10 MG PO (07:13)
[2019-02-09] MEDS ORDERED: ASPIRIN E.C. 8181 MG PO (07:15)
[2019-02-09] MEDS ORDERED: NORVASC 10MG10 MG PO (07:15)
[2019-02-09] MEDS ORDERED: COUMADIN 1MG1 MG/TAB PO (07:16)
[2019-02-09 07:17] LABS: PROTHROMBIN TIME 11.4 SECONDS (9.7-12.8)
--- NOTE | 2019-02-09 07:50 | NUR ---
SEE KAYLA FOR ALL MEDICATION ADMINISTRATION AND INTRA AND POST SEDATION DOCUMENTATION/ASSESSMENT
--- NOTE | 2019-02-09 08:30 | NUR ---
Pt returned to EU 9 per bed s/p fistulogram. Pt resting well, at bedside.
--- NOTE | 2019-02-09 10:45 | NUR ---
Pt has ambulated and ga PO intake s n/v. PIV removed with catheter intact. Pt states he only voids once a day and does not need to void at this time.
--- NOTE | 2019-02-09 11:10 | NUR ---
Pt discharged per w/c by nurse with .
== END 2019-02-09 11:17 | disposition home or self-care (01) ==
LOC: COL.CAR 06:06
PROVIDERS: Radiology Diagnostic Radiology
DX: T82.858A Stenosis of other vascular prosthetic devices, implants and grafts, initial encounter (principal); I12.0 Hypertensive chronic kidney disease with stage 5 chronic kidney disease or end stage renal disease; N18.6 End stage renal disease; Z99.2 Dependence on renal dialysis; Z79.01 Long term (current) use of anticoagulants; Z79.82 Long term (current) use of aspirin; F17.210 Nicotine dependence, cigarettes, uncomplicated
CPT/HCPCS: J1644; J2250; J3010; Q9967

== ENCOUNTER 2019-02-19 04:48 | Inpatient (IN) | payer MEDICARE ==
[~2019-02-19] VITALS: Ht 175.3 cm; Wt 83.6 kg
[2019-02-19 05:21] LABS: BASO # 0.1 (0.0-0.2); BASO % 0.5 % (0.0-2.0); EOS # 0.4 (0.0-0.7); EOS % 2.9 % (0-4.0); GRAN # 6.4 (1.4-6.5); GRAN % 52.3 % (42.2-75.2); HEMATOCRIT 43.3 % (42.0-52.0); HEMOGLOBIN 13.5 g/dl (13.5-18.0); LYMPH % 32.4 % (20.0-51.0); MEAN CELL VOLUME 83 fl (80.0-100.0); MEAN CORPUSCULAR HEMOGLOBIN 26 pg (27.0-31.0); MEAN CORPUSCULAR HGB CONC 31 g/dl (33.0-37.0); MEAN PLATELET VOLUME 9.4 fl (7.4-10.4); MONO # 1.4 (0.1-0.6); MONO % 11.7 % (1.7-9.3); PLATELET COUNT 304 K/mm3 (130-400); REDCELL DISTRIBUTION WIDTH-CV 18.1 % (11.5-14.5)
[2019-02-19 05:25] LABS: INR 0.9 (0.8-3.0); PROTHROMBIN TIME 10.1 SECONDS (9.7-12.8)
[2019-02-19 05:28] LABS: PARTIAL THROMBOPLASTIN TIME 34.2 SECONDS (26.0-37.0)
[2019-02-19 05:37] LABS: ALBUMIN 4.5 gm/dL (3.5-5.0); BILIRUBIN,TOTAL 0.4 mg/dL (0.0-1.0); POTASSIUM 3.5 mmol/L (3.4-5.0); TOTAL PROTEIN 9.2 gm/dL (6.4-8.2)
[2019-02-19 05:38] LABS: CREATININE, serum 4.55 (0.66-1.25)
--- NOTE | 2019-02-19 09:27 | NUR ---
Pt transfered from ER. Pt lying in bed alert and oriented. Pt denied pain. pt oriented to , call light, room service and bed button. Pt's meds reconciled. Call light in reach.
[2019-02-19 09:40] VITALS: BP 147/86; PULSE 56; TEMP 97.7
--- NOTE | 2019-02-19 10:32 | NUR ---
Visit attempted and pt sleeping soundly in bed. Call light in reach.
[2019-02-19 12:38] VITALS: BP 153/91; PULSE 66; TEMP 97.4
--- NOTE | 2019-02-19 12:49 | NUR ---
Pt resting in bed comfortably. Pt's at the bedside. Dr. Mederos assessed hime and left. No concern. Denied pain. Call light in reach.
--- NOTE | 2019-02-19 13:36 | NUR ---
Pt's in dialysis.
--- NOTE | 2019-02-19 17:02 | NUR ---
Pt still in dialysis at this time.
[2019-02-19 17:47] VITALS: BP 156/96; PULSE 76; TEMP 98
--- NOTE | 2019-02-19 17:49 | NUR ---
pT CAME BACK FROM DIALYSIS. PT ALERT AND ORIENTED AND DENIED PAIN. CALL LIGHT IN REACH.
--- NOTE | 2019-02-19 18:30 | NUR ---
Pt resting in bed and waiting for pt's . Pt denied pain. No concern.
[2019-02-19 19:22] VITALS: BP 146/87; PULSE 73; TEMP 98.7
[2019-02-19 19:39] VITALS: BP 146/87; PULSE 73; TEMP 98.7
[2019-02-19 23:37] VITALS: BP 147/95; PULSE 85; TEMP 98.2
[2019-02-20 03:42] VITALS: BP 152/89; PULSE 68; TEMP 98
--- NOTE | 2019-02-20 04:37 | NUR ---
PT HAD UNEVENTFUL NOC. NO ISSUES OR CONSERNS VOICED. NEUROS REMAIN UNREMARKABLE. VITALS HAVE BEEN 140'S-150'S/ 90S THIS SHIFT. PT HAS BEEN ALERT AND ORIENTED THIS SHIFT, SOME WEAKNESS NOTED WHEN AMBULATING. APPEARED TO HAVE SLEPT WELL THIS NOC. NO ISSUES OR CONSERNS VOICED THIS SHIFT.
[2019-02-20 07:05] LABS: CALCIUM 9.5 mg/dL (8.4-10.2); POTASSIUM 3.5 mmol/L (3.4-5.0)
[2019-02-20 07:06] LABS: CREATININE, serum 4.22 (0.66-1.25)
[2019-02-20 07:26] VITALS: BP 172/91; PULSE 71; TEMP 98.3
--- NOTE | 2019-02-20 07:51 | NUR ---
Pt assessment complete. Pt is laying in bed upon entry, he is A/O x3. His breathing is even and unlabored on RA. Pt denies SOB. No pain this AM. Pt denies N/V. Catheter to R chest CDI. Fistula to LFA, bruit auscultated. Pt denies any needs, POC discussed with patient who verbalizes understanding. No Call light within reach.
[2019-02-20 10:49] VITALS: BP 117/70; PULSE 81; TEMP 98.5
--- NOTE | 2019-02-20 12:55 | NUR ---
Patient lives at home with is his (Jairon) in [place], [place] and plans to return home upon discharge. Patient is moderately independent with daily living activities with support from his and family as needed. Patient's primary care physician is Dr. Veras, the [facility], and also Dr. Sanders. Patient is on dialysis and attends Thursday, , Thursday at this time, his pharmacy is [facility], and he does have advance directives for healthcare completed. No futher needs and social work job titles will follow as needed.
--- NOTE | 2019-02-20 14:53 | NUR ---
Discharge instructions reviewed with patient and . All questions answered at this time. IV to RAC dc'd, catheter tip intact. Pt walked out of facility at this time.
== END 2019-02-20 14:55 | disposition home or self-care (01) | DRG 77 ==
LOC: COL.ER 04:48 → MEDICAL 07:06
PROVIDERS: Emergency Medicine; ADMIT Internal Medicine
PROC: 5A1D70Z Performance of Urinary Filtration, Intermittent, Less than 6 Hours Per Day (ICD-10-PCS; principal; 2019-02-19)
DX: I67.4 Hypertensive encephalopathy (principal); N18.6 End stage renal disease; I12.0 Hypertensive chronic kidney disease with stage 5 chronic kidney disease or end stage renal disease; Z99.2 Dependence on renal dialysis; Z87.891 Personal history of nicotine dependence; D63.1 Anemia in chronic kidney disease; G47.33 Obstructive sleep apnea (adult) (pediatric); Z91.19 Patient's noncompliance with other medical treatment and regimen; D86.0 Sarcoidosis of lung; G90.9 Disorder of the autonomic nervous system, unspecified
CPT/HCPCS: OP; J1644; J1650; J7030

== ENCOUNTER 2019-02-25 18:49 | Emergency (ER) | payer MEDICARE, MEDICAID ==
[~2019-02-25] VITALS: Ht 175.3 cm; Wt 81.8 kg
[2019-02-25 19:14] VITALS: BP 167/111; PULSE 81; TEMP 98.7
== END 2019-02-25 21:41 | disposition left against medical advice (07) ==
LOC: COL.ER 18:49
DX: M25.521 Pain in right elbow (principal); Z79.82 Long term (current) use of aspirin; Z79.01 Long term (current) use of anticoagulants

== ENCOUNTER → 2019-04-06 | Outpatient (CLI) | payer MEDICARE, MEDICAID ==
--- NOTE | 2019-04-05 08:33 | NUR ---
LMOM WITH CALL BACK NUMBER
[~2019-04-06] VITALS: Ht 175.3 cm; Wt 82.6 kg
[2019-04-06 12:40] VITALS: BP 206/142; PULSE 92
[2019-04-06 13:10] VITALS: BP 216/138; PULSE 90
== END ==
LOC: COL.RAD 12:15
DX: N18.6 End stage renal disease (principal)

== ENCOUNTER 2019-08-04 22:04 | Inpatient (IN) | payer MEDICARE ==
[~2019-08-04] VITALS: Ht 175.3 cm; Wt 88.5 kg
[~2019-08-04 22:04] MED LIST changes: +AMBIEN 10MG10 MG PO; +CATAPRES 0.1MG0.1 MG PO; +TYLENOL 500MG500 MG PO; +XANAX .25M0.25 MG/TA PO; +ZOLOFT 100MG100 MG PO
[2019-08-04 22:42] LABS: BASO % 0.3 % (0.0-2.0); EOS # 0.3 (0.0-0.7); EOS % 2.4 % (0-4.0); GRAN # 7.9 (1.4-6.5); GRAN % 67.5 % (42.2-75.2); HEMATOCRIT 46.9 % (42.0-52.0); HEMOGLOBIN 15.1 g/dl (13.5-18.0); LYMPH # 2.4 (1.2-3.4); LYMPH % 20.9 % (20.0-51.0); MEAN CELL VOLUME 82 fl (80.0-100.0); MEAN CORPUSCULAR HEMOGLOBIN 26 pg (27.0-31.0); MEAN CORPUSCULAR HGB CONC 32 g/dl (33.0-37.0); MEAN PLATELET VOLUME 8.9 fl (7.4-10.4); MONO % 8.6 % (1.7-9.3); PLATELET COUNT 257 K/mm3 (130-400); RED BLOOD COUNT 5.72 M/mm3 (4.20-5.60); REDCELL DISTRIBUTION WIDTH-CV 15.1 % (11.5-14.5)
[2019-08-04 22:53] LABS: ALANINE AMINOTRANSFERASE < 6 U/L (21-72); ALBUMIN 4.5 gm/dL (3.5-5.0); ALKALINE PHOSPHATASE 85 U/L (50-136); ANION GAP 11 mmol/L (7-16); AST,SGOT 20 U/L (15-37); BILIRUBIN,TOTAL 0.4 mg/dL (0.0-1.0); BLOOD UREA NITROGEN 37 mg/dL (9-20); CALCIUM 9.2 mg/dL (8.4-10.2); CARBON DIOXIDE 23 mmol/L (22-30); CHLORIDE 102 mmol/L (98-107); CREATININE, serum 4.92 (0.66-1.25); GLUCOSE 124 mg/dL (74-106); POTASSIUM 4.2 mmol/L (3.4-5.0); SODIUM 136 mmol/L (137-145); TOTAL PROTEIN 9.1 gm/dL (6.4-8.2)
[2019-08-04 23:01] LABS: ACETAMINOPHEN < 10 ug/mL (10-30); ALCOHOL(ethanol),MEDICAL < 10 mg/dL; SALICYLATE < 1.0 mg/dL
[2019-08-05] VITALS (43 sets, daily range): BP systolic 131–173; BP diastolic 71–114; PULSE 63–117; TEMP 97.6–98.6
--- NOTE | 2019-08-05 02:54 | NUR ---
Received report from YUE Dumont.
--- NOTE | 2019-08-05 03:15 | NUR ---
Patient arrives to medical room 308 via ED stretcher. Patient ambulates to medical bed. Patient's green gown is exchanged for a phillips one. Vitals are obtained. Initial BP is 173/111. Patient reports having been without BP medications since Thursday evening and did not attend his dialysis appointment scheduled for 08/04. Will notify [facility]. Other vitals were within normal limits. Patient arrives with a peripheral 22 gauge IV in right hand; no fluids ordered or infusing at this time. Patient has a fistula in the left forearm. Bruit and thrill are present and restricted extremity band is in place. Patient has a right chest port that is covered by a clean and intact guaze dressing. Patient is on suicide precautions at this time. Potential ligatures have been removed from patient's room. Patient denies any pain or discomfort at this time. Is currently resting quietly with eyes closed in bed. Will continue to monitor.
[2019-08-05 03:17] LABS: COLLECTION METHOD CLEAN CATCH
[2019-08-05 03:24] LABS: PH 5 (5-8); SQUAMOUS EPITHELIAL None Seen /hpf; URINE APPEARANCE Clear; URINE BACTERIA None Seen /hpf; URINE BILIRUBIN Negative (NEGATIVE); URINE BLOOD Negative (NEGATIVE); URINE COLOR Yellow; URINE GLUCOSE Negative (NEGATIVE); URINE KETONE Negative (NEGATIVE); URINE LEUKOCYTE ESTERASE Negative (NEGATIVE); URINE NITRATE Negative (NEGATIVE); URINE PROTEIN(semi-quant) Negative (NEGATIVE); URINE RBC None Seen /hpf; URINE UROBILINOGEN Negative (NEGATIVE)
[2019-08-05 03:37] LABS: TRICYCLIC ANTIDEPRESS URINE NEGATIVE
--- NOTE | 2019-08-05 06:53 | NUR ---
Bedside report given to YUE Granados.
--- NOTE | 2019-08-05 08:00 | NUR ---
Assessment complete. Pt resting in bed, A&O x 3. Physical assessment unremarkable, pt denies pain at this time. Pt asking about being able to leave and is uncomfortable in the provided gown. This nurse reviews the policy with the pt regarding the required gown and needing the doctor to order a discharge. Pt confirms the suicide attempt prior to coming in and verbalizes understanding of the policy. Pt states, "I do not want to go to dialysis today." SAVANNA Lynch notified of pt's wishes. No further needs reported. Call light in reach. Bed alarm on. Sitter in place.
--- NOTE | 2019-08-05 10:30 | NUR ---
Pt having increased anxiety, emotional with tears with at bedside.
--- NOTE | 2019-08-05 10:44 | NUR ---
Initial visit; Patient experiencing depression and appeared to be somewhat comforted as he spoke with Log Feeder about his health issues. Log Feeder listened and offered prayer and empathy along with spiritual care.
--- NOTE | 2019-08-05 10:52 | NUR ---
Provider notified of Psychiatrist not being preparation plant supervisor today or this weekend. Provider states, "I will call her and see if she can come."
--- NOTE | 2019-08-05 13:40 | NUR ---
Pt reports anxiety increasing again, requests PRN medication as availabe. See eMAR. No further needs reported. Call light in reach.
--- NOTE | 2019-08-05 15:49 | NUR ---
Enrichment Assistant met with patient who just woke up from napping. Patient kept eyes closes during most of interview and spoke softly. Patient lives in [place] with his , Shavonne (ph#[phone]) and his four children. Patient states he can't remember the name of his primary care physician. Patient reports independence with ADLS and states he uses a CPAP. Patient's brother, Romeo ([phone]) is standing outside of patient room. Patient states he plans to go home upon discharge.
--- NOTE | 2019-08-05 22:38 | NUR ---
Pt calmly resting in bed. Asking for night time medication. Very agreeable, no current threat or harm to self or others. Will continue to monitor.
[2019-08-06] VITALS (8 sets, daily range): BP systolic 136–171; BP diastolic 70–114; PULSE 63–85; TEMP 97–99.2
--- NOTE | 2019-08-06 02:32 | NUR ---
Pt sleeping. No concerns at this time.
--- NOTE | 2019-08-06 08:11 | NUR ---
Assessment complted, alert/oriented, vital signs stable, denies pain or discomfort, denies issues/ concerns/ complaints over night, heart RRR, lungs CTA, denies any further suicidal ideas and stated "just gets depressed somtetimes", we are taking him down to dialysis at this time by wheelchair to room IMCU 18, I have given him his Xanax prior to going down for treatment, he denied other needs at this time
[2019-08-06 08:45] LABS: BASO % 0.5 % (0.0-2.0); EOS # 0.2 (0.0-0.7); EOS % 2.5 % (0-4.0); GRAN # 4.5 (1.4-6.5); GRAN % 54.6 % (42.2-75.2); HEMATOCRIT 45.3 % (42.0-52.0); HEMOGLOBIN 14.3 g/dl (13.5-18.0); LYMPH % 36.4 % (20.0-51.0); MEAN CELL VOLUME 83 fl (80.0-100.0); MEAN CORPUSCULAR HEMOGLOBIN 26 pg (27.0-31.0); MEAN CORPUSCULAR HGB CONC 32 g/dl (33.0-37.0); MEAN PLATELET VOLUME 9.3 fl (7.4-10.4); MONO # 0.5 (0.1-0.6); MONO % 5.9 % (1.7-9.3); PLATELET COUNT 266 K/mm3 (130-400); RED BLOOD COUNT 5.46 M/mm3 (4.20-5.60)
[2019-08-06 08:53] LABS: CALCIUM 8.9 mg/dL (8.4-10.2); CREATININE, serum 3.48 (0.66-1.25)
--- NOTE | 2019-08-06 19:50 | NUR ---
Pt laying in bed with at bedside. Report rcvd from YUE Duque. No changes regarding pt condition. Will have a procedure Thursday for his fistula. Assessment completed, Call light and phone within reach. Bed in low and locked position. No further concerns at this time.
[2019-08-07 04:05] VITALS: BP 153/81; PULSE 65; TEMP 97.7
--- NOTE | 2019-08-07 05:12 | NUR ---
Pt resting in room. Pt has slept all night with no complaints or concerns. No further concerns at this time.
--- NOTE | 2019-08-07 07:35 | NUR ---
Report given to YUE Duque. Pt had an uneventful night. No further concerns.
[2019-08-07 08:21] VITALS: BP 146/81; PULSE 62; TEMP 97.6
[2019-08-07 08:21] LABS: FACTOR V LEIDEN MUTATION B Negative (Negative); PT G20210A MUTATION B Negative (Negative)
--- NOTE | 2019-08-07 08:22 | NUR ---
Assessment completed, drowsy but easy to arouse, alert/oriented, vital signs stable, denies pain or discomfort, heart RRR/ distal pulses are palpable, lungs CTA/ no resp.difficulty noted, left arm fisutal + bruit/thrill, right chest HD cath dressing is C/D/I, patient denies feeling depressed or suicidal today, Lexapro was started yesterday per psych recs., morning medicaitons adminsitered and patient is waiting on his breakfast, he denies other needs at this time
[2019-08-07 12:02] VITALS: BP 128/67; PULSE 66; TEMP 97.6
[2019-08-07 16:37] VITALS: BP 136/89; PULSE 71; TEMP 98.3
[2019-08-07 19:27] VITALS: BP 132/70; PULSE 73; TEMP 98.6
--- NOTE | 2019-08-07 21:00 | NUR ---
PT RESTING IN BED. NO C/O PAIN OR DISCOMFORT. ASSESSMENT COMPLETE, NO FURTHER CONCERNS. CALL LIGHT WITHIN REACH.
[2019-08-08] VITALS (11 sets, daily range): BP systolic 118–163; BP diastolic 68–98; PULSE 61–77; TEMP 97.3–98.1
--- NOTE | 2019-08-08 05:35 | NUR ---
PT SLEEPING IN BED. HAS BEEN NPO SINCE MIDNIGHT IN PREPARATION FOR PROCEDURE SOMETIME TODAY. NO CONCERNS AT THIS TIME. PT CALL LIGHT WITHIN REACH.
--- NOTE | 2019-08-08 09:00 | NUR ---
Assessment complete. Pt resting in bed, A&O x 4. Physical assessment unremarkable. Pt denies pain at this time. Saline lock IV to right hand without s/s of complications. AV fistula to left forearm with strong thrill to palpation. POC reviewed with pt regarding sched procedure and NPO status. No further needs reported. Call light in reach.
--- NOTE | 2019-08-08 09:30 | NUR ---
Pt to Express unit rm 17 for dialysis via WC.
[2019-08-08 10:45] LABS: BASO # 0.1 (0.0-0.2); BASO % 0.6 % (0.0-2.0); EOS # 0.3 (0.0-0.7); EOS % 3.3 % (0-4.0); GRAN # 6.1 (1.4-6.5); GRAN % 62.7 % (42.2-75.2); HEMATOCRIT 42.7 % (42.0-52.0); HEMOGLOBIN 13.4 g/dl (13.5-18.0); LYMPH # 2.7 (1.2-3.4); LYMPH % 27.4 % (20.0-51.0); MEAN CELL VOLUME 83 fl (80.0-100.0); MEAN CORPUSCULAR HEMOGLOBIN 26 pg (27.0-31.0); MEAN CORPUSCULAR HGB CONC 31 g/dl (33.0-37.0); MEAN PLATELET VOLUME 9.2 fl (7.4-10.4); MONO # 0.5 (0.1-0.6); MONO % 5.4 % (1.7-9.3); PLATELET COUNT 220 K/mm3 (130-400); RED BLOOD COUNT 5.13 M/mm3 (4.20-5.60); REDCELL DISTRIBUTION WIDTH-CV 15.2 % (11.5-14.5)
[2019-08-08 11:00] LABS: CALCIUM 8.7 mg/dL (8.4-10.2); CREATININE, serum 2.83 (0.66-1.25); POTASSIUM 4.3 mmol/L (3.4-5.0)
--- NOTE | 2019-08-08 11:00 | NUR ---
Dialysis nurse calls to report pt having nausea, new order for medication in place. One time Zofran taken down to pt and administered per orders.
--- NOTE | 2019-08-08 15:10 | NUR ---
Pt to OR for procedure via cart.
--- NOTE | 2019-08-08 16:50 | NUR ---
Pt back to room from procedure via cart, assisted to bed. Pt very drowsy, repeatedly asking the same questions about the procedure. VSS. Left forearm site with swifset, CDI. Call light in reach. Bed alarm on.
[2019-08-09 03:35] VITALS: BP 125/86; PULSE 68; TEMP 97.6
[2019-08-09 07:23] VITALS: BP 155/92; PULSE 70; TEMP 97.8
--- NOTE | 2019-08-09 08:20 | NUR ---
Assessment completed, drowsy but easy to arouse, oriented x3, vital signs stable, denies pain or discomfort, heart RRR, lungs CTA, left fistula +bruit/thrill, right chest HDC dressing is C/D/I, denies feeling depresseed or suicidal this morning, resting quietly and denies sother needs at this time
[2019-08-09 09:15] LABS: KAPPA FREE LIGHT CHAIN-SERUM 60.52 mg/L (()); KAPPA LAMBDA RATIO 0.96 ratio (()); LAMDA FREE LIGHT CHAIN SERUM 63.03 mg/L (())
[2019-08-09 09:51] LABS: PROTEIN C ACTIVITY 95 % (70-150)
[2019-08-09] MEDS ORDERED: COUMADIN 1MG1 MG/TAB PO (10:41)
[2019-08-09] MEDS ORDERED: LEXAPRO 10MG10 MG PO (10:43)
[2019-08-09] MEDS ORDERED: NICODERM C21 MG/PATC TD (10:43)
[2019-08-09] MEDS ORDERED: XANAX 0.5MG0.5 MG PO (10:46)
--- NOTE | 2019-08-09 11:07 | NUR ---
The patient is to discharge back home with his family today, 08/09. SW presented and explained the IM form to the patient. The patient verbalized understanding, signed, and he was provided a copy. No additional needs at this time.
--- NOTE | 2019-08-09 11:30 | NUR ---
Patient discharge orders reviewed, insturcted him to take his medicaitons as prescribed/ scripts for Lexapro/Nicoderm/Xanax sent to pharmacy for him, insturcted him to follow up with Psych/ behvioral health, patient verbalized he did not want us to make him any follow up with Psych and that he would arrange his own Counselor for his depression, IV removed, leaving with his significant other, ALISON personally escorted him out the door
[2019-08-09 12:38] LABS: LUPUS ANTICOAGULANT INR 1.1 (0.7-1.3)
== END 2019-08-09 12:47 | disposition home or self-care (01) | DRG 907 ==
LOC: COL.ER 22:04 → MEDICAL 23:28
PROVIDERS: Emergency Medicine; Surgery; ADMIT Internal Medicine Nephrology
PROC: 5A1D70Z Performance of Urinary Filtration, Intermittent, Less than 6 Hours Per Day (ICD-10-PCS; 2019-08-06)
PROC: 05LY0ZZ Occlusion of Upper Vein, Open Approach (ICD-10-PCS; principal; 2019-08-08 15:30)
DX: T42.6X2A Poisoning by other antiepileptic and sedative-hypnotic drugs, intentional self-harm, initial encounter (principal); N18.6 End stage renal disease; T82.41XA Breakdown (mechanical) of vascular dialysis catheter, initial encounter; I13.2 Hypertensive heart and chronic kidney disease with heart failure and with stage 5 chronic kidney disease, or end stage renal disease; I50.32 Chronic diastolic (congestive) heart failure; D63.1 Anemia in chronic kidney disease; D86.9 Sarcoidosis, unspecified; R29.6 Repeated falls; F41.9 Anxiety disorder, unspecified; Z99.2 Dependence on renal dialysis; F32.9 Major depressive disorder, single episode, unspecified; R79.1 Abnormal coagulation profile; Z87.891 Personal history of nicotine dependence; Z91.19 Patient's noncompliance with other medical treatment and regimen; Z79.01 Long term (current) use of anticoagulants
CPT/HCPCS: G0378; J0690; J1644; J2060; J2405; J2704; J2997; J3010; J7030

== ENCOUNTER → 2019-11-02 | Outpatient (CLI) | payer MEDICARE ==
[~2019-11-02] VITALS: Ht 175.3 cm; Wt 97.4 kg
[~2019-11-02] MED LIST changes: +LEXAPRO 10MG10 MG PO; +NICODERM C21 MG/PATC TD; +XANAX 0.5MG0.5 MG PO
[2019-11-02 09:29] VITALS: BP 177/112; PULSE 82
[2019-11-02 10:04] VITALS: BP 162/105; PULSE 76
--- NOTE | 2019-11-02 10:26 | NUR ---
PT HAS HAD NO BLEEDING FOR 30 MINUTES. DC INFORMATION DISCUSSED WITH PT AND . NO QUESTIONS ASKED. PT WAS TAKEN TO LOBBY IN WHEELCHAIR. DRIVING PT HOME
== END ==
LOC: COL.RAD 09:00
DX: Z49.01 Encounter for fitting and adjustment of extracorporeal dialysis catheter (principal); N18.6 End stage renal disease

== ENCOUNTER 2020-04-20 08:11 | Day surgery (SDC) | payer MEDICARE, MEDICAID ==
[~2020-04-20] VITALS: Ht 175.3 cm; Wt 105.5 kg
[2020-04-20 08:43] VITALS: BP 144/106; PULSE 75; TEMP 98.4
[2020-04-20 10:15] VITALS: BP 153/103; PULSE 71; TEMP 97.7
--- NOTE | 2020-04-20 10:15 | NUR ---
PT TO BAY 3 VIA CART FROM [facility], WALKED TO CHAIR WITH ASSIST, IN ROOM, PT HAS CALL LIGHT, TAKES JUICE, NO C/O
[2020-04-20 10:30] VITALS: BP 155/99; PULSE 70
[2020-04-20 10:45] VITALS: BP 149/98; PULSE 68
--- NOTE | 2020-04-20 10:45 | NUR ---
DR CHRISTIE SEE PT AND , CON'T SAME, NO C/O, IV D'CD INTACT, PT UP AND DRESSED
[2020-04-20] MEDS ORDERED: PROTONIX 40MG T40 MG PO (10:58)
[2020-04-20 11:00] VITALS: BP 148/99; PULSE 70
--- NOTE | 2020-04-20 11:00 | NUR ---
REVIEWED DISCHARGE INST. WITH PT AND , WILL DECKER OPERATOR NEW RX, INFORMATION GIVEN ON DRUG. OFFICE WILL CONSTACT THEM ON RESULTS AND FOLLOWUPS NEEDED. REVIEWED MODERATE SEDATION PRECAUTIONS WITH PT WITH VERBAL UNDERSTANDING. DISCHARGED VIA W/C TO CAR AT 1110
== END 2020-04-20 11:10 | disposition home or self-care (01) ==
LOC: SDCO 08:11
DX: K25.7 Chronic gastric ulcer without hemorrhage or perforation (principal); K21.9 Gastro-esophageal reflux disease without esophagitis; K29.30 Chronic superficial gastritis without bleeding; K92.1 Melena; I10 Essential (primary) hypertension; I12.0 Hypertensive chronic kidney disease with stage 5 chronic kidney disease or end stage renal disease; N18.6 End stage renal disease; I25.10 Atherosclerotic heart disease of native coronary artery without angina pectoris; J44.9 Chronic obstructive pulmonary disease, unspecified; F32.9 Major depressive disorder, single episode, unspecified; F41.9 Anxiety disorder, unspecified; D63.1 Anemia in chronic kidney disease; Z99.2 Dependence on renal dialysis; Z79.01 Long term (current) use of anticoagulants
CPT/HCPCS: J2704; J7030

== ENCOUNTER 2020-12-26 10:28 | Outpatient (CLI) | payer MEDICARE, MEDICAID ==
[~2020-12-26] VITALS: Ht 175.4 cm; Wt 109.3 kg
[2020-12-26] VITALS (8 sets, daily range): BP systolic 115–169; BP diastolic 87–107; PULSE 71–78
[2020-12-26] MEDS ORDERED: XANAX 0.5MG0.5 MG PO (11:54)
[2020-12-26] MEDS ORDERED: CATAPRES 0.1MG0.1 MG PO (11:55)
[2020-12-26] MEDS ORDERED: LEXAPRO 10MG10 MG PO (11:55)
--- NOTE | 2020-12-26 12:22 | NUR ---
SEE MERGE FOR ALL MEDICATION ADMINISTRATION TIMES, INTRA AND POST SEDATION ASSESSMENTS
--- NOTE | 2020-12-26 13:15 | NUR ---
Pt returned from procedure,report from YUE Armendariz>
--- NOTE | 2020-12-26 14:12 | NUR ---
Dr Nvoak in to see pt,OK to dc home per Dr Novak.Discharge instructions given to pt.pt verbalizes understanding.INT removed catheter tip intact.
--- NOTE | 2020-12-26 14:15 | NUR ---
Pt escorted out via wheelchair by this nurse.
== END 2020-12-26 15:59 | disposition home or self-care (01) ==
LOC: COL.CAR 10:28
DX: T82.848A Pain due to vascular prosthetic devices, implants and grafts, initial encounter (principal); I12.0 Hypertensive chronic kidney disease with stage 5 chronic kidney disease or end stage renal disease; N18.6 End stage renal disease; F17.210 Nicotine dependence, cigarettes, uncomplicated; Z99.2 Dependence on renal dialysis; Z79.899 Other long term (current) drug therapy; Z20.822 Contact with and (suspected) exposure to COVID-19; Z90.49 Acquired absence of other specified parts of digestive tract
CPT/HCPCS: J1644; J2250; J3010; Q9967

== ENCOUNTER → 2021-02-06 | Outpatient (CLI) | payer MEDICARE, MEDICAID | LOC: COL.CARD 09:39 | DX: G25.0 Essential tremor (principal) ==

== ENCOUNTER → 2021-04-12 | Outpatient (CLI) | payer MEDICARE, MEDICAID | LOC: COL.RAD 09:43 | DX: Z11.1 Encounter for screening for respiratory tuberculosis (principal); Z46.6 Encounter for fitting and adjustment of urinary device; J94.8 Other specified pleural conditions ==

== ENCOUNTER 2021-09-16 11:51 | Emergency (ER) | payer MEDICARE, MEDICAID ==
[~2021-09-16] VITALS: Ht 172.7 cm; Wt 97.7 kg
[2021-09-16 12:32] VITALS: TEMP 98
[2021-09-16 13:15] LABS: BASO # 0.1 K/mm3 (0.0-0.2); BASO % 0.4 % (0.0-2.0); EOS # 0.3 K/mm3 (0.0-0.7); EOS % 2.4 % (0.0-4.0); GRAN # 6.7 K/mm3 (1.4-6.5); GRAN % 56.5 % (42.2-75.2); HEMATOCRIT 47.7 % (42.0-52.0); HEMOGLOBIN 15.5 g/dl (13.5-18.0); LYMPH # 3.8 K/mm3 (1.2-3.4); LYMPH % 32.1 % (20.0-51.0); MEAN CELL VOLUME 82 fl (80.0-100.0); MEAN CORPUSCULAR HEMOGLOBIN 27 pg (27-31); MEAN CORPUSCULAR HGB CONC 33 g/dl (33.0-37.0); MEAN PLATELET VOLUME 9.1 fl (7.4-10.4); MONO % 8.3 % (1.7-9.3); PLATELET COUNT 316 K/mm3 (130-400); REDCELL DISTRIBUTION WIDTH-CV 15.6 % (11.5-14.5)
[2021-09-16 13:39] LABS: ALBUMIN 3.5 gm/dL (3.5-5.0); BILIRUBIN,TOTAL 0.4 mg/dL (0.2-1.2); CALCIUM 9.2 mg/dL (8.4-10.2); CREATININE, serum 4.63 mg/dL (0.72-1.25); POTASSIUM 3.7 mmol/L (3.5-4.5)
[2021-09-16 15:47] VITALS: BP 170/113; PULSE 70
== END 2021-09-16 15:50 | disposition home or self-care (01) ==
LOC: COL.ER 11:51
PROVIDERS: Physician Assistant
DX: I12.0 Hypertensive chronic kidney disease with stage 5 chronic kidney disease or end stage renal disease (principal); N18.6 End stage renal disease; F32.A Depression, unspecified; F17.210 Nicotine dependence, cigarettes, uncomplicated; Z99.2 Dependence on renal dialysis; Z79.899 Other long term (current) drug therapy

== ENCOUNTER 2021-10-14 10:21 | Inpatient (IN) | payer MEDICARE, MEDICAID ==
[~2021-10-14] VITALS: Ht 20.3 cm; Wt 98.2 kg
[2021-10-14 15:01] LABS: BASO # 0.1 K/mm3 (0.0-0.2); BASO % 0.4 % (0.0-2.0); EOS % 0.1 % (0.0-4.0); GRAN # 12.7 K/mm3 (1.4-6.5); GRAN % 73.9 % (42.2-75.2); HEMOGLOBIN 11.1 g/dl (13.5-18.0); LYMPH # 3.4 K/mm3 (1.2-3.4); LYMPH % 19.5 % (20.0-51.0); MEAN CELL VOLUME 83 fl (80.0-100.0); MEAN CORPUSCULAR HEMOGLOBIN 27 pg (27-31); MEAN CORPUSCULAR HGB CONC 32 g/dl (33.0-37.0); MEAN PLATELET VOLUME 9.5 fl (7.4-10.4); MONO # 0.9 K/mm3 (0.1-0.6); MONO % 5.5 % (1.7-9.3); PLATELET COUNT 293 K/mm3 (130-400); RED BLOOD COUNT 4.17 M/mm3 (4.20-5.60); REDCELL DISTRIBUTION WIDTH-CV 14.8 % (11.5-14.5)
[2021-10-14 15:02] LABS: HEMATOCRIT 34.7 % (42.0-52.0)
[2021-10-14 15:05] LABS: INR 1.1 (0.8-3.0); PROTHROMBIN TIME 12.1 SECONDS (9.7-12.8)
[2021-10-14] MEDS ORDERED: LASIX 80MG TABL80 MG PO (15:23)
[2021-10-14 15:26] LABS: ALBUMIN 3.6 gm/dL (3.5-5.0); BILIRUBIN,TOTAL 0.4 mg/dL (0.2-1.2); CREATININE, serum 5.18 mg/dL (0.72-1.25); POTASSIUM 3.8 mmol/L (3.5-4.5); TOTAL PROTEIN 8.1 gm/dL (6.2-8.1)
[2021-10-14 15:45] VITALS: BP 172/95; PULSE 96; TEMP 98.1
--- NOTE | 2021-10-14 17:12 | NUR ---
SPOKE WITH DELICIA. PT STATES THAT HE DOES NOT WANT AN IV AT THIS TIME. DELICIA STATES THAT IT IS OK TO WAIT UNTIL HE GOES FOR HIS PROCEDURE TO START THAT. PT STATES THAT HE WAS IN THE ER YESTERDAY AND GOT A COVID TEST THERE AND IT WAS NEGATIVE. DELICIA STATES THAT IF WE ARE ABLE TO GET RECORDS FROM THE ER THEN WE DO NOT NEED TO REPEAT THE COVID TEST. PT IS REFUSING TO EAT A RENAL DIET. PT STATES "IF I HAVE TO EAT THAT CRAP THEN I JUST WON'T EAT ANYTHING AT ALL THEN." DELICIA STATES THAT IT IS OK TO ORDER HIM A REGULAR DIET AND IT WILL BE READDRESSES LATER. PT IS REQUESTING IMODIUM FOR HIS STOMACH. DELICIA STATES THAT SHE WOULD LIKE TO HOLD OFF GIVING HIM THAT AT THIS TIME. PT IS OK WITH THAT. PT ALSO REQUESTING A NICOTINE PATCH. DELICIA STATES TO GIVE A 14 NICOTINE PATCH RIGHT NOW AND THEN SHE WILL REASSESS THAT LATER TO SEE IF HE NEEDS A DOSE ADJUSTED. ALL ORDERS WERE READ BACK AND VERBALIZED.
[2021-10-14 19:55] VITALS: BP 168/101; PULSE 106; TEMP 98.1
[2021-10-14 23:51] VITALS: BP 163/82; PULSE 103; TEMP 97.4
[2021-10-15 04:00] VITALS: BP 134/93; PULSE 81; TEMP 97.3
--- NOTE | 2021-10-15 06:21 | NUR ---
pt had hard time getting to sleep tonite, d/t back and knee pain, tylenol and tramadol given, see emar, is sleeping at this time. unable to obtain stool, emesis or urine specimen this shift. pt urinated prior to video and sound recorder, has not had any emesis or stools since admission. BP elevated prior to home meds, lower this am. dialysis this morning.
[2021-10-15 08:18] LABS: COLLECTION METHOD CLEAN CATCH
[2021-10-15 08:28] LABS: PH 5 (5-8); SQUAMOUS EPITHELIAL None Seen /hpf (0-10); URINE APPEARANCE Clear (CLEAR/HAZY); URINE BACTERIA None Seen /hpf (NONE SEEN); URINE BILIRUBIN Negative (NEGATIVE); URINE BLOOD 1+ (NEGATIVE); URINE COLOR Yellow (YELLOW); URINE GLUCOSE Negative (NEGATIVE); URINE KETONE Negative (NEGATIVE); URINE LEUKOCYTE ESTERASE Trace (NEGATIVE); URINE NITRATE Negative (NEGATIVE); URINE PROTEIN(semi-quant) 2+ (NEGATIVE); URINE RBC 0-2 /hpf (0-2); URINE UROBILINOGEN Negative (NEGATIVE); URINE WBC 20-50 /hpf (0-2)
[2021-10-15 09:10] LABS: BASO # 0.1 K/mm3 (0.0-0.2); BASO % 0.5 % (0.0-2.0); EOS # 0.4 K/mm3 (0.0-0.7); EOS % 3.3 % (0.0-4.0); GRAN # 5.9 K/mm3 (1.4-6.5); GRAN % 51.6 % (42.2-75.2); LYMPH # 4.1 K/mm3 (1.2-3.4); LYMPH % 35.7 % (20.0-51.0); MEAN CELL VOLUME 83 fl (80.0-100.0); MEAN CORPUSCULAR HGB CONC 33 g/dl (33.0-37.0); MEAN PLATELET VOLUME 9.4 fl (7.4-10.4); MONO % 8.6 % (1.7-9.3); PLATELET COUNT 234 K/mm3 (130-400); RED BLOOD COUNT 2.93 M/mm3 (4.20-5.60); REDCELL DISTRIBUTION WIDTH-CV 14.6 % (11.5-14.5)
[2021-10-15 09:11] LABS: HEMATOCRIT 24.2 % (42.0-52.0); HEMOGLOBIN 7.9 g/dl (13.5-18.0); MEAN CORPUSCULAR HEMOGLOBIN 27 pg (27-31)
--- NOTE | 2021-10-15 09:13 | NUR ---
Initial visit; Patient thanked Aerospace Assembler for looking in on him and for offering encouragement and prayer. Aerospace Assembler thanked Munir for coming to [facility].
[2021-10-15 09:23] LABS: ALBUMIN 2.7 gm/dL (3.5-5.0); CALCIUM 7.9 mg/dL (8.4-10.2); CREATININE, serum 4.43 mg/dL (0.72-1.25); PHOSPHOROUS 2.6 mg/dL (2.3-4.7); POTASSIUM 3.7 mmol/L (3.5-4.5)
--- NOTE | 2021-10-15 10:42 | NUR ---
PT ASLEEP IN BED. WOKE PT UP TO INFORM HIM THAT HE WOULD BE GOING TO DIALYSIS THIS AM. PT VOICED UNDERSTANDING. STATES THAT HE WOULD LIKE TO HAVE HIS MEDICAITONS BEFORE HE WENT. MEDICATIONS GIVEN PER ORDERS. PT WAS ABLE TO GIVE A URINE SAMPLE. SAMPLE WAS COLLECTED AND SENT TO LAB. PT STATES THAT HE WOULD LIKE TO HAVE SOME SOCKS, SOCKS WERE GIVEN TO PT. INFOMRED PT THAT WE STILL NEED STOOL AND EMESIS SAMPLE. PT VOICED UNDERSTANDING. NO OTHER NEEDS WERE VOICED AT THIS TIME. CALL LIGHT WAS PLACED WITHIN REACH.
--- NOTE | 2021-10-15 11:49 | NUR ---
PATIENT TOLERATED HIS HD TX WITH NO FLUID REMOVAL, GIVEN 384ML OF FLUID. ATTEMPTED FLUID REMOVAL & PATIENT'S BP LOW WITH C/O DIZZINESS, NAUSEA & RLE CRAMPING. RESOLVED PRIOR TO LEAVING DIALYSIS ROOM. PATIENT GIVEN ZOFRAN, ULTRAM WITH TYLENOL & LIDOCAINE PATCHES APPLIED TO LOWER BACK FOR PAIN. NEXT PLANNED HD TX ON Thursday10/17/21 @ 0800.
[2021-10-15 12:01] VITALS: BP 159/85; PULSE 81; TEMP 98
--- NOTE | 2021-10-15 14:29 | NUR ---
SW and SW student conducted an intake on patient to discuss discharge planning. Patient lives at home with his , Jairon (ph#[phone]), in [place], [place]. Patient does not have a PCP and said that he did not want to establish one at this time. Patient receives his medications from [facility]. Patient uses a cane and a CPAP ([facility]), but is independent with his ADL's. Patient had not been to dialysis in a week prior to coming to the hospital. SW asked if there was a reasoning for it for which he said, "It's my own fault." Patient's chair time for dialysis is 6am Thursday-. SW asked if patient had a DPOA-HC on file and patient said that he had previously filled one out, but does not have any idea where it would be at. Patient did confirm that his primary agent listed is his . Patient does have one adult child named Jared. Discharge plan: Home
[2021-10-15 16:14] VITALS: BP 138/84; PULSE 80; TEMP 97.5
[2021-10-15 20:19] VITALS: BP 154/81; PULSE 78; TEMP 97.9
--- NOTE | 2021-10-15 22:35 | NUR ---
Patient assessed around 2004. Alert and oriented x 4, and able to make needs known. Patient reported pain to knees, and given PRN Ultram and APAP. Also started on Golyte[place] per orders. Patient took 1 sip of bowel prep, and started having emesis. Dr. Camara notified. Given one time dose of Zofran ODT, as well as Reglan. Readministered all HS medications around 2214, along with PRN medications due to patient having emesis right after taking medications. Patient not tolerating bowel prep and refusing. garment supervisor started IV. AV fistula to left forearm with positive bruit and thrill. Denies SOB and dyspnea. Patient in bed with call light within reach. Aware that he is NPO after midnight for EGD tomorrow even if he does not have colonoscopy. Voices no questions, needs, or concerns at this time. In bed with call light within reach.
[2021-10-15 23:17] VITALS: BP 115/68; PULSE 74; TEMP 97.5
[2021-10-16] VITALS (10 sets, daily range): BP systolic 93–141; BP diastolic 55–84; PULSE 64–79; TEMP 97.5–97.9
--- NOTE | 2021-10-16 06:03 | NUR ---
Patient has been NPO since midnight for EGD. Did not do bowel prep due to not tolerating, and not willing to try again after taking Zofran and Reglan. No further emesis this shift. Voices no questions, needs, or concerns at this time. In bed with call light within reach.
[2021-10-16 06:18] LABS: BASO # 0.1 K/mm3 (0.0-0.2); BASO % 0.6 % (0.0-2.0); EOS # 0.4 K/mm3 (0.0-0.7); EOS % 3.2 % (0.0-4.0); GRAN # 5.9 K/mm3 (1.4-6.5); LYMPH % 35.5 % (20.0-51.0); MEAN CELL VOLUME 84 fl (80.0-100.0); MEAN CORPUSCULAR HGB CONC 32 g/dl (33.0-37.0); MEAN PLATELET VOLUME 9.8 fl (7.4-10.4); MONO # 0.9 K/mm3 (0.1-0.6); MONO % 8.3 % (1.7-9.3); PLATELET COUNT 245 K/mm3 (130-400); RED BLOOD COUNT 2.77 M/mm3 (4.20-5.60); REDCELL DISTRIBUTION WIDTH-CV 14.9 % (11.5-14.5)
[2021-10-16 06:27] LABS: HEMATOCRIT 23.2 % (42.0-52.0); HEMOGLOBIN 7.5 g/dl (13.5-18.0); MEAN CORPUSCULAR HEMOGLOBIN 27 pg (27-31)
[2021-10-16 06:46] LABS: ALBUMIN 2.8 gm/dL (3.5-5.0); CALCIUM 8.2 mg/dL (8.4-10.2); CREATININE, serum 3.47 mg/dL (0.72-1.25); PHOSPHOROUS 2.9 mg/dL (2.3-4.7); POTASSIUM 4.2 mmol/L (3.5-4.5)
--- NOTE | 2021-10-16 08:20 | NUR ---
Shift assessment complete. Pt resting in bed. A&Ox4. Intermittent nausea and vomiting reported overnight. Denies pain. Heart RRR. Lungs CTA. Pre-op fluids started per orders. Denies further needs. Call light in reach.
--- NOTE | 2021-10-16 08:30 | NUR ---
Pt off unit for EGD at this time.
--- NOTE | 2021-10-16 19:30 | NUR ---
Bedside shift report received, assumed care for restaurant shift supervisor. Assessment complete. A&Ox4. Denies nausea/shortness of breath/pain. LUE with fitula to the forearm. INT to right hand flushes well. Currently on RA. VS remain stable. States he hasnt had any emesis or stool since yesterday. Reminded we needed a specimen of each for the lab. Verbalizes understanding. Plan of care discussed for this shift to include meds/labs/calling for questions/concerns. Verbalizes understanding. Call light in reach. Will monitor.
--- NOTE | 2021-10-16 21:15 | NUR ---
Called by PCT stating patient was in bathroom actively vomitting in to the toilet. PCT reports it was a substantial amount in the toilet. Lisafran given per dr hobson. Will monitor.
--- NOTE | 2021-10-17 00:24 | NUR ---
C/O nausea and feeling lightheaded. States "I think my blood pressure is bottoming out." Checked at this time by this nures 130s/60s. Blood sugar also checked and is 96. One time dose of zofran given. Discussed if he thought it could be related to the tramadol but states he takes it during the day without feeling this way. Patient did have emesis after receiving tramadol at 2030. Instructed to call if zofran does not help. Verbalizes understanding. Call light in reach. Will monitor.
--- NOTE | 2021-10-17 01:14 | NUR ---
Resting eyes closed. No s/s of pain noted. Will monitor.
[2021-10-17 04:26] VITALS: BP 122/81; PULSE 72; TEMP 98
--- NOTE | 2021-10-17 04:45 | NUR ---
Called with c/o pain to right knee and ankle. Described as constant ache-rating pain 6/10. Tramadol given per dr order. Will continue to monitor.
[2021-10-17 07:58] VITALS: BP 118/73; PULSE 76; TEMP 97.6
[2021-10-17] MEDS ORDERED: BLUE-EMU LIDOC1 EACH TP (09:19)
[2021-10-17] MEDS ORDERED: ZOFRAN 4MG T4 MG/TAB PO (09:20)
[2021-10-17] MEDS ORDERED: PROTONIX 40MG T40 MG PO (09:23)
--- NOTE | 2021-10-17 09:41 | NUR ---
PT SITTING UP IN BED. MORNING MEDICATIONS GIVEN. SHIFT ASSESSMENT COMPLETED. REPORTS PAIN IN THE BACK, KNEES, ANKLES. DENIES ANY STOOLS OR EMESIS SINCE LAST NIGHT. CURRENTLY OFF UNIT FOR DIALYSIS AT THIS TIME. CONTINUING TO MONITOR.
--- NOTE | 2021-10-17 10:22 | NUR ---
PT OFF UNIT FOR DIALYSIS AT THIS TIME.
[2021-10-17 10:30] LABS: BASO # 0.1 K/mm3 (0.0-0.2); BASO % 0.5 % (0.0-2.0); EOS # 0.4 K/mm3 (0.0-0.7); EOS % 3.7 % (0.0-4.0); GRAN # 6.2 K/mm3 (1.4-6.5); GRAN % 57.9 % (42.2-75.2); LYMPH # 3.2 K/mm3 (1.2-3.4); LYMPH % 29.8 % (20.0-51.0); MEAN CELL VOLUME 85 fl (80.0-100.0); MEAN CORPUSCULAR HGB CONC 32 g/dl (33.0-37.0); MEAN PLATELET VOLUME 9.6 fl (7.4-10.4); MONO # 0.8 K/mm3 (0.1-0.6); MONO % 7.4 % (1.7-9.3); PLATELET COUNT 302 K/mm3 (130-400); RED BLOOD COUNT 2.92 M/mm3 (4.20-5.60); REDCELL DISTRIBUTION WIDTH-CV 15.1 % (11.5-14.5)
[2021-10-17 10:32] LABS: HEMATOCRIT 24.8 % (42.0-52.0); HEMOGLOBIN 7.9 g/dl (13.5-18.0); MEAN CORPUSCULAR HEMOGLOBIN 27 pg (27-31)
[2021-10-17 10:54] LABS: CALCIUM 8.2 mg/dL (8.4-10.2); CREATININE, serum 4.43 mg/dL (0.72-1.25); PHOSPHOROUS 2.8 mg/dL (2.3-4.7); POTASSIUM 3.6 mmol/L (3.5-4.5)
[2021-10-17] MEDS ORDERED: REGLAN 5MG T5 MG/TAB PO (12:34)
--- NOTE | 2021-10-17 12:51 | NUR ---
PATIENT TOLERATED HD TX WITH NO FLUID REMOVAL, GIVEN 200 ML FLUID BOLUS. NEXT PLANNED HD TX ON Thursday10/19/21 @ 6205 @ [facility] IN [place].
[2021-10-17 13:24] VITALS: BP 162/73; PULSE 74; TEMP 98
--- NOTE | 2021-10-17 13:45 | NUR ---
THIS RN WENT INTO PT ROOM AFTER COMING BACK FROM DIALYSIS TO GIVE DISCHARGE INSTRUCTIONS. PT NOT IN ROOM. SECURITY CONTACTED.
--- NOTE | 2021-10-17 13:54 | NUR ---
ATTEMPTED TO CONTACT PT AND SPOKE WITH HIS . UPDATED HER ON NEW MEDICATIONS CALLED OUT TO PHARMACY AND APPOINTMENTS. OFFERED TO TRY TO CONTACT PT AND SHE STATED HE DOES NOT ANSWER HIS PHONE. WILL DISCHARGE PT FROM SYSTEM.
== END 2021-10-17 13:57 | disposition home or self-care (01) | DRG 377 ==
LOC: MEDICAL 10:21
PROVIDERS: Internal Medicine Gastroenterology; Registered Nurse; ADMIT Internal Medicine Nephrology
PROC: 0DJ08ZZ Inspection of Upper Intestinal Tract, Via Natural or Artificial Opening Endoscopic (ICD-10-PCS; principal; 2021-10-16 08:30)
PROC: 5A1D70Z Performance of Urinary Filtration, Intermittent, Less than 6 Hours Per Day (ICD-10-PCS; 2021-10-17)
DX: K29.71 Gastritis, unspecified, with bleeding (principal); N18.6 End stage renal disease; I12.0 Hypertensive chronic kidney disease with stage 5 chronic kidney disease or end stage renal disease; D35.02 Benign neoplasm of left adrenal gland; D63.1 Anemia in chronic kidney disease; F32.A Depression, unspecified; F41.9 Anxiety disorder, unspecified; F17.210 Nicotine dependence, cigarettes, uncomplicated; I16.0 Hypertensive urgency; D72.829 Elevated white blood cell count, unspecified; K31.84 Gastroparesis; M25.562 Pain in left knee; M25.561 Pain in right knee; M25.571 Pain in right ankle and joints of right foot; Z91.15 Patient's noncompliance with renal dialysis; Z99.2 Dependence on renal dialysis; Z23 Encounter for immunization
CPT/HCPCS: J1644; J1756; J2405; J2704; J7030; Q5105

== ENCOUNTER 2022-01-02 14:14 | Inpatient (IN) | payer MEDICARE, MEDICAID ==
[~2022-01-02] VITALS: Ht 172.7 cm; Wt 104.5 kg
[~2022-01-02 14:14] MED LIST changes: +BLUE-EMU LIDOC1 EACH TP; +LASIX 80MG TABL80 MG PO
[2022-01-02 16:00] VITALS: BP 149/85; PULSE 73; TEMP 98.4
[2022-01-02 17:50] LABS: BASO % 0.1 % (0.0-2.0); EOS % 0.2 % (0.0-4.0); GRAN # 10.6 K/mm3 (1.4-6.5); GRAN % 70.3 % (42.2-75.2); HEMATOCRIT 45.2 % (42.0-52.0); HEMOGLOBIN 14.4 g/dl (13.5-18.0); LYMPH % 19.9 % (20.0-51.0); MEAN CELL VOLUME 83 fl (80.0-100.0); MEAN CORPUSCULAR HEMOGLOBIN 26 pg (27-31); MEAN CORPUSCULAR HGB CONC 32 g/dl (33.0-37.0); MEAN PLATELET VOLUME 9.2 fl (7.4-10.4); MONO # 1.4 K/mm3 (0.1-0.6); MONO % 9.2 % (1.7-9.3); PLATELET COUNT 303 K/mm3 (130-400); RED BLOOD COUNT 5.45 M/mm3 (4.20-5.60); REDCELL DISTRIBUTION WIDTH-CV 15.1 % (11.5-14.5)
[2022-01-02 18:09] LABS: ALBUMIN 3.6 gm/dL (3.5-5.0); BILIRUBIN,TOTAL 0.2 mg/dL (0.2-1.2); CALCIUM 8.8 mg/dL (8.4-10.2); CREATININE, serum 4.94 mg/dL (0.72-1.25); POTASSIUM 4.1 mmol/L (3.5-4.5); TOTAL PROTEIN 7.9 gm/dL (6.2-8.1)
--- NOTE | 2022-01-02 18:36 | NUR ---
PT ADMITTED TO UNIT. ADMISSION INTAKE AND ASSESSMENT COMPLETED. ORIENTED PT TO ROOM. REPORTS SOB. DENIES ANY PAIN OR NEEDS. WILL CONTINUE TO MONITOR.
[2022-01-02 18:37] LABS: PROTHROMBIN TIME 10.9 SECONDS (9.7-12.8)
[2022-01-02 19:15] LABS: ARTERIAL BLD GAS O2 SATURATION 97.6 % (92-100); ARTERIAL BLD GAS TCO2 CT 23.2; ARTERIAL BLOOD GAS BASE EXCESS -2.6 (-2-2); ARTERIAL BLOOD GAS PO2 93.2 mmHg (80-100); ARTERIAL BLOOD GAS pH 7.38 (7.35-7.45)
[2022-01-02 20:00] VITALS: BP 162/84; PULSE 79; TEMP 97.6
--- NOTE | 2022-01-02 22:00 | NUR ---
Patient is resting in bed, alert and oriented x 4, VSS. States he can not taste food. Denies diarrhea, nausea, vomiting. Telemetry in place, NSR. Assessment completed, medications provided, no other needs at this time. Call light within reach.
[2022-01-03] VITALS (7 sets, daily range): BP systolic 137–172; BP diastolic 70–98; PULSE 64–77; TEMP 97.6–98.8
--- NOTE | 2022-01-03 05:14 | NUR ---
Pt has had a calm night. He is at room air, no fevers, no diarrhea. Hypertensive. No further needs at this time. Report will be given to day RN.
--- NOTE | 2022-01-03 08:23 | NUR ---
PT RESTING IN BED. MORNING MEDICATIONS GIVEN. SHIFT ASSESSMENT COMPLETED. PT DENIES ANY PAIN OR NEEDS. STATES HE FEELS SOB JUST LAYING IN BED, REPORTS IT FEELS WORSE IN THE L LUNG. LUNG SOUNDS ARE DIMINISHED. UPDATED PT ON POC. WILL CONNTINUE TO MONITOR.
[2022-01-03 11:12] LABS: BASO % 0.2 % (0.0-2.0); EOS % 0.2 % (0.0-4.0); GRAN # 8.9 K/mm3 (1.4-6.5); GRAN % 68.4 % (42.2-75.2); HEMATOCRIT 43.5 % (42.0-52.0); HEMOGLOBIN 13.8 g/dl (13.5-18.0); LYMPH # 2.6 K/mm3 (1.2-3.4); LYMPH % 19.9 % (20.0-51.0); MEAN CELL VOLUME 84 fl (80.0-100.0); MEAN CORPUSCULAR HEMOGLOBIN 27 pg (27-31); MEAN CORPUSCULAR HGB CONC 32 g/dl (33.0-37.0); MEAN PLATELET VOLUME 9.3 fl (7.4-10.4); MONO # 1.5 K/mm3 (0.1-0.6); MONO % 11.1 % (1.7-9.3); PLATELET COUNT 274 K/mm3 (130-400); RED BLOOD COUNT 5.19 M/mm3 (4.20-5.60); REDCELL DISTRIBUTION WIDTH-CV 15.1 % (11.5-14.5)
--- NOTE | 2022-01-03 11:12 | NUR ---
DISCHARGE INSTRUCTIONS GIVEN, ALL QUESTIONS ANSWERED. IV D/C. OSMAN D/C. PT WAITING FOR HER RIDE TO ARRIVE. WILL CONTINUE TO [id number].
--- NOTE | 2022-01-03 11:24 | NUR ---
The patient's COVID PCR test came back positive. SW contacted the patient to discuss discharge plan. The patient lives in [place] with his , Jairon (ph#[phone]), and their four children. He reports independence with ADLs and has a cane and CPAP from [facility]. The patient states that he does not have a PCP and was not interested in the hospital getting him set up with one. He states that Dr. Sanders manages his care. He receives his medications from [facility] and he reports no difficulties obtaining his meds. The patient does not have a DPOA-HC in EMR, but he states that he does have one completed and that it designates his . The patient plans on returning home with his family upon discharge. SW to continue to monitor. *Discharge plan: home with family*
[2022-01-03 11:26] LABS: ALBUMIN 3.1 gm/dL (3.5-5.0); CALCIUM 8.7 mg/dL (8.4-10.2); CREATININE, serum 4.78 mg/dL (0.72-1.25); POTASSIUM 4.3 mmol/L (3.5-4.5)
--- NOTE | 2022-01-03 15:48 | NUR ---
PATIENT TOLERATED HD TX WITH 2.3L OF FLUID REMOVED. NEXT PLANNED HD TX ON Thursday01/06/22 @ 0830.
--- NOTE | 2022-01-03 20:00 | NUR ---
Patient is resting in bed, alert and oriented x 4, VSS. Complains of SOB. O2 sats over 95% some breathing techniques explained. He stated headache, tylenol provided. Telemetry in place, NSR. Assessment completed, meds provided. No other needs at this time. Call light within reach.
[2022-01-03 22:50] LABS: COLLECTION METHOD CLEAN CATCH
[2022-01-03 23:04] LABS: PH 5 (5-8); SQUAMOUS EPITHELIAL 0-2 /hpf (0-10); URINE APPEARANCE Hazy (CLEAR/HAZY); URINE BACTERIA Moderate /hpf (NONE SEEN); URINE BILIRUBIN Negative (NEGATIVE); URINE BLOOD 1+ (NEGATIVE); URINE COLOR Yellow (YELLOW); URINE GLUCOSE Negative (NEGATIVE); URINE KETONE Negative (NEGATIVE); URINE LEUKOCYTE ESTERASE 2+ (NEGATIVE); URINE NITRATE Negative (NEGATIVE); URINE PROTEIN(semi-quant) 2+ (NEGATIVE); URINE UROBILINOGEN Negative (NEGATIVE)
[2022-01-04 04:17] VITALS: BP 154/95; PULSE 67; TEMP 98.7
--- NOTE | 2022-01-04 06:16 | NUR ---
Patient has had a calm night. Hypertensive SBP 150-170 DBP 90's. No fever, diarrhea or N&V. He has some difficulty to sleep. Report will be given to day RN.
[2022-01-04 07:29] VITALS: BP 125/78; PULSE 86; TEMP 98.1
--- NOTE | 2022-01-04 08:15 | NUR ---
Scheduled medications given. Shift assessment performed. Patient states, "I am to tired to be in pain." Currently on RA. Requested a PRN xanax this AM. Denies any N/V/D, chills, and is afebrile. Nicotine patch placed on Right upper arm. Lidocaine patch place on lower back. Patient denies any pain, discomfort, SOA, or futher needs at this time. Call light in reach. VSS. Patient A&O. On contact/droplet precautions for Covid.
[2022-01-04 13:14] VITALS: BP 168/91; PULSE 73; TEMP 97.9
[2022-01-04 15:44] VITALS: BP 109/69; PULSE 69; TEMP 97.7
--- NOTE | 2022-01-04 16:08 | NUR ---
Patient has had an ok day. Denies any pain, discomfort, SOA, or further needs at this time. SAVANNA Sanchez contacted for elevated blood pressure. Verbal order for apresoline recieved, repeated back, entered, and administered. Upon recheck, BP WNL. Call light in reach.
--- NOTE | 2022-01-04 19:50 | NUR ---
Patient is lying in bed, alert and oriented x 4, VSS. Denies SOB, fevers, diarrhea. Continues with loss of taste and smell. Telemetry in place NSR. RA. Assessment completed, meds provided. No other needs at this time. Call light within reach.
[2022-01-04 20:40] VITALS: BP 168/95; PULSE 76; TEMP 98.1
[2022-01-04 23:54] VITALS: BP 148/88; PULSE 73; TEMP 97.8
[2022-01-05 04:11] VITALS: BP 143/77; PULSE 71; TEMP 97.9
--- NOTE | 2022-01-05 05:40 | NUR ---
Patient has been stable along the night. One episode of HTN. PRN provided. VSS. No fever, diarrhea. All needs met. Report will be given to day RN
[2022-01-05 08:18] VITALS: BP 167/86; PULSE 70; TEMP 98.4
--- NOTE | 2022-01-05 10:51 | NUR ---
Scheduled medications given. Shift assessment performed. Nicotine patch placed on Right upper arm. Lidocaine patch placed on patient's lower back. Patient denies any pain, discomfort, SOA, or further needs at this time. BP elevated, scheduled BP medicines given. All other VSS. Patient A&O. Call light in reach.
[2022-01-05 11:52] VITALS: BP 176/105; PULSE 73; TEMP 98.5
--- NOTE | 2022-01-05 13:01 | NUR ---
BP elevated. PRN BP medications given.
[2022-01-05 16:35] VITALS: BP 143/76; PULSE 69; TEMP 97.7
--- NOTE | 2022-01-05 18:00 | NUR ---
Patient has had an ok day. Denies any pain, discomfort, SOA, or further needs at this time. VSS. Patient A&O. Call light in reach.
[2022-01-05 19:29] VITALS: BP 180/92; PULSE 75; TEMP 98.4
[2022-01-06 00:28] VITALS: BP 145/74; PULSE 71; TEMP 98.4
--- NOTE | 2022-01-06 00:43 | NUR ---
Pt alert and oriented this evening. Calm and cooperative. Resting in bed this evening. Denies pain. Independent in the room. Shift assessment performed. Medications administered and education provided. Vital signs stable. BP runs elevated, but decreased after evening norvasc was administered. Pt did not each much dinner this evening, refused extra nourishment when offered. Remains on room air, satting WNL. No SOB noted. LFA fistula present with left arm restrictions. Bruit auscultated and thrill palpated. Pt reported he did have some diarrhea this morning. No diarrhea yet this evening. Denies chest pain. States he is ready to go home tomorrow. Pt reports no questions at this time, will continue to monitor.
--- NOTE | 2022-01-06 04:46 | NUR ---
Pt had an uneventful night. Vital signs remain stable. Pt on room air. Alert and oriented when awake. Rested majority of the night. Systolic BP remained under 165 for remainder of the evening after ordered norvasc was administered around 2100. Pt reported no complaints overnight. Continues to deny pain. No concerns at this time, will continue to monitor.
[2022-01-06 04:49] VITALS: BP 157/85; PULSE 67; TEMP 98.2
[2022-01-06 07:18] VITALS: BP 181/97; PULSE 72; TEMP 98.2
--- NOTE | 2022-01-06 10:38 | NUR ---
PATIENT ALERT AND ORIENTED. EXPECTANT TO DISCHARGE TODAY. DIALYSIS PLANNED FOR [id number] TODAY. PATIENT EXPRESSED IRRITATION WITH DELAY. NO COMPLAINTS OF PAIN, N/V/D, NO COMPLAINTS OF COVID SYMPTOMS. ANXIOUS TO GET OUTSIDE AND SEE FAMILY AND SMOKE.
--- NOTE | 2022-01-06 10:44 | NUR ---
Patient to discharge home today. Pulmonologist contacted patient's room phone as he is in isolation for covid. SW reviewed IM form over the phone with patient who verbalized understanding and gave verbal consent as signature. SW placed form in patient's chart. Patient has no further questions or concerns at this time.
--- NOTE | 2022-01-06 10:44 | NUR ---
PATIENT EDUCATION DISCUSSED. PATIENT IN A HURRY TO BE DISCHARGED HOME, ANXIOUS TO "SEE CHILDREN, DOGS AND ". PATIENT STATED HE WILL NOT BE AT DIALYSIS AT 0615, HE WILL GO AT "0700". PATIENT WALKED OF HIS OWN VOLITION WITH MCALLISTER DOWN TO PATIENT ADMISSIONS WITH AUTHOR TO 'S VAN. IN [employer]. NO SIGNIFICANT EVENTS THIS SHIFT.
== END 2022-01-06 10:30 | disposition home or self-care (01) | DRG 640 ==
LOC: MEDICAL 14:14
PROVIDERS: ADMIT Internal Medicine Nephrology
PROC: 5A1D70Z Performance of Urinary Filtration, Intermittent, Less than 6 Hours Per Day (ICD-10-PCS; principal; 2022-01-03)
DX: E87.70 Fluid overload, unspecified (principal); N18.6 End stage renal disease; U07.1 COVID-19; I12.0 Hypertensive chronic kidney disease with stage 5 chronic kidney disease or end stage renal disease; D63.1 Anemia in chronic kidney disease; F32.A Depression, unspecified; F41.9 Anxiety disorder, unspecified; F17.210 Nicotine dependence, cigarettes, uncomplicated; Z99.2 Dependence on renal dialysis; Z86.018 Personal history of other benign neoplasm; Z91.15 Patient's noncompliance with renal dialysis; Z23 Encounter for immunization
CPT/HCPCS: J1644; J7030

== ENCOUNTER 2022-05-14 07:10 | Outpatient (CLI) | payer MEDICARE, MEDICAID ==
[~2022-05-14] VITALS: Ht 172.7 cm; Wt 101.0 kg
[2022-05-14] VITALS (9 sets, daily range): BP systolic 143–165; BP diastolic 90–103; PULSE 71–79; TEMP 97.7
[2022-05-14] MEDS ORDERED: PROTONIX 40MG T40 MG PO (08:12)
[2022-05-14] MEDS ORDERED: SODIUM BICARBO650 MG PO (08:13)
--- NOTE | 2022-05-14 10:11 | NUR ---
See merge for all medication, assessment, intervention, and vitalsign times.
--- NOTE | 2022-05-14 10:38 | NUR ---
Pt back to express from radiology after AV fistulogram. Pt is drowsy, resp reg and unlabored. resting supine on stretcher. bandaid to puncture site on left forearm, no evidence of bleeding, dressing clean and dry. call light in reach, at bs. pt and aware of poc. lunch ordered (renal diet). wctm
--- NOTE | 2022-05-14 11:22 | NUR ---
Pt ready to go home, and verbal okay was received from DR. Stratton to discharge pt at this time. Fistula looks good, thrill palpable as it was on arrival, cms intact distal, no bleeding or redness noted around bandaid that is covering puncture site. Pt has been up and is steady on feet. I have reviewed dc/fu instructions with pt and who both verbalize understanding. Pt escorted to exit via wheelchair.
== END 2022-05-14 12:20 | disposition home or self-care (01) ==
LOC: COL.CAR 07:10
DX: T82.858A Stenosis of other vascular prosthetic devices, implants and grafts, initial encounter (principal); F17.210 Nicotine dependence, cigarettes, uncomplicated
CPT/HCPCS: J2250; J3010; Q9967

== ENCOUNTER 2022-07-09 10:07 | Outpatient (CLI) | payer MEDICARE, MEDICAID ==
[2022-07-09] VITALS (9 sets, daily range): BP systolic 148–173; BP diastolic 94–102; PULSE 68–78; TEMP 98.1
[~2022-07-09] VITALS: Ht 172.7 cm; Wt 103.6 kg
[~2022-07-09 10:07] MED LIST changes: +SODIUM BICARBO650 MG PO
--- NOTE | 2022-07-09 12:46 | NUR ---
SEE MERGE FOR VITAL SIGNS, ASSESSMENTS, INTERVENTIONS AND MEDICATIONS GIVEN.
--- NOTE | 2022-07-09 15:46 | NUR ---
Pt has rested comfortably during his recovery. I have reviewed dc/fu instructions with pt and . no concerns at time of departure. Bandaid to puncture site on fistula has remained clean and dry, there is no swelling or bleeding at site. thrill remains palpable and area of thrill is increased compared to his arrival. Pt is steady on his feet. I escorted him to exit in a wheelchair.
== END 2022-07-09 16:54 | disposition home or self-care (01) ==
LOC: COL.CAR 10:07
DX: T82.590A Other mechanical complication of surgically created arteriovenous fistula, initial encounter (principal); I12.0 Hypertensive chronic kidney disease with stage 5 chronic kidney disease or end stage renal disease; N18.6 End stage renal disease; Z99.2 Dependence on renal dialysis; Z79.899 Other long term (current) drug therapy; F17.200 Nicotine dependence, unspecified, uncomplicated
CPT/HCPCS: C1725; C1769; C1894; J1644; J2250; J3010; Q9967